=== PATIENT | female | born 1950 | race Caucasian/White ===

== ENCOUNTER 2018-06-11 17:36 | Emergency (ER) | payer OTHER, MEDICARE, SELFPAY ==
[2018-06-11 17:42] VITALS: BP 175/79; PULSE 89; RESP 18; TEMP 37.1; O2SAT 98
--- NOTE | 2018-06-11 17:59 | W.ED.GENAD ---
Discharge Plan Disposition Patient Disposition: HOME Condition: Improving Discharge Details Chief Complaint: Orthopedic Clinical Impression: Closed fracture of distal end of radius Primary Care Provider: Shelbie oLza ED Provider: Tima Sierra Home Meds and New Rx's Prescriptions: Continued PROVENTIL HFA 18 GM HFA.AER.AD 2 puff Inhalation Q4H PRN Qty: 1 RF: 12 cetirizine [Zyrtec] 10 mg tablet 10 mg PO DAILY PRNRF: 0 Discharge Instructions Instructions: Wrist Fracture in Adults (ED) Additional Instructions: Please call the orthopedic office at [phone] tomorrow afternoon for a follow-up time/appointment. Elevate above the level of heart to reduce pain and swelling. May use ice through the splint to reduce discomfort. May use Tylenol 650-1000 mg every 4-6 hours; not exceed more than 4000 mg in 1 day. May also use ibuprofen 600-800 mg every 8 hours, with food for pain. Return if you have increasing pain, numbness or tingling of the fingertips, or any other acute concern. Medical Decision Making 67-year-old female who slipped and fell and after [employer] driveway landing on her right side. She did not strike her head, no loss of consciousness. She denies head/neck/abdomen discomfort. There is some mild tenderness overlying the right lateral ribs on exam as well as distal radius tenderness right. No motor/vascular/sensory dysfunction. Pt referred for x-ray to rule out underlying bony injury. Patient declined rib x-rays. Her radiographs of the right wrist show a distal radius fracture with mild dorsal angulation and intra-articular extension. Patient placed in sugar tong splint and will have her follow-up in orthopedics. Discussed with her home management as well as return precautions. HPI General Mode of arrival: ambulatory. Date/Time Provider Initiated Documentation: 06/11/18 17:53. Limitations to Documentation: no limitations. Information obtained by: patient. History of Present Illness 67 year old F presents to the emergency department with the chief complaint of Slip and fall on ice to right side with right rib and right wrist pain, described as moderate, Quality is described as aching and dull, and is localized to the chest, right and upper extremity. Patient reports no radiation. Patient started experiencing this minute(s) and it has been constant. Rest improves symptom(s), Movement worsens symptoms . Patient notes no other symptoms.; denies headaches and syncope. Patient did receive the following treatments prior to arrival, cold therapy Related Data Home Medications Medication Instructions Recorded Confirmed cetirizine 10 mg tablet 10 mg PO DAILY PRN tab-cap 02/06/18 06/11/18 Allergies Allergy/AdvReac Type Severity Reaction Status Date / Time PETS/HORSES/HAY/DUST/DANDER/POLLEN Allergy Unknown Uncoded 06/11/18 17:49 General Stated Complaint: Orthopedic PRIYANKA: 4 Review of Systems Review of Systems 6 systems reviewed and otherwise negative [facility] Medical History Allergic rhinitis (Acute) Asthma (Chronic) Surgical History Ligation of fallopian tube (Inactive ~1981) Family History Mother Hyperlipidemia Stroke Father Heart disease Lung disease Sister No problems noted. Brother Brain tumor Brother No problems noted. Daughter No problems noted. Son No problems noted. Son No problems noted. Maternal Grandfather No problems noted. Maternal Grandmother Parkinson disease Paternal Grandfather Stroke Paternal Grandmother No problems noted. Social History Smoking/Tobacco Use Status: Never Alcohol Intake: never Drug use: Never Substance use type: does not use Do you feel safe at home: Yes Do you feel safe in your relationship?: Yes Exam Narrative Exam Narrative: GEN: awake, alert, oriented 3. Pleasant, well groomed, interactive. HEAD: Normocephalic, atraumatic ENT: Mucous membranes moist, oropharynx unremarkable, External ear exam unremarkable EYES: PERRL, EOMI NECK: Full ROM, no JOAN, no menigismus. No tenderness on palpation of the back CHEST/RESP: Right lateral inferior chest wall tenderness to palpation, no crepitus, clear to auscultation bilateral, no wheeze/rhonchi/rales CARDIOVASCULAR: RRR, no murmur, rub eleni. 2+ Rad pulse bilateral ABDOMEN: Soft, nontender, no mass. +Bowel sounds EXT: Full ROM, right distal radius tenderness to palpation with mild overlying soft tissue swelling. Motor and sensory testing is within normal limits Neuro: Grossly normal neurologic exam, conversant, interactive. Psych: Speech fluent, thoughts congruent, affect normal Course Vital Signs Temperature 37.1 C 06/11/18 17:42 Pulse 89 06/11/18 17:42 Respiratory Rate 18 06/11/18 17:42 Blood Pressure 175/79 H 06/11/18 17:42 Pulse Oximetry 98 06/11/18 17:42 Temperature 37.1 C 06/11/18 17:42 Temperature Source Skin 06/11/18 17:42 Pulse 89 06/11/18 17:42 Respiratory Rate 18 06/11/18 17:42 Respiratory Effort Non-Labored 06/11/18 17:49 Blood Pressure 175/79 H 06/11/18 17:42 Blood Pressure Position Sitting 06/11/18 17:42 Pulse Oximetry 98 06/11/18 17:42 Oxygen Delivery Method Room Air 06/11/18 17:42 Oxygen Flow Rate 0 06/11/18 17:42 Pain Level 8 06/11/18 17:42 Comment 06/11/18 17:42 Procedures Orthopedic Splinting/Casting Injury #1: Side: right Upper Extremity Injury Location: wrist Upper Extremity Immobilizer: sugartong splint
--- NOTE | 2018-06-11 18:29 | DI.RAD_ITS ---
SYMPTOMS/DIAGNOSIS: PAIN S/P FALL RIGHT WRIST: Three views. There is a comminuted fracture of the distal right radius involving the medial articular surface. There is mild dorsal angulation of the fracture noted. There is soft tissue swelling present. No other fracture or dislocation is seen. IMPRESSION: Mild dorsally angulated intraarticular fracture of the distal right radius.
--- NOTE | 2018-06-11 18:57 | DI.VRAD_ITS ---
EXAM: XR Right Wrist Complete, 3 or more Views EXAM DATE/TIME: 06/11/2018 6:23 PM CLINICAL HISTORY: 67 years old, female; Pain and injury or trauma; Fall; Initial encounter; Blunt trauma (contusions or hematomas; Wrist; Right; Injury details: RT wrist pain after fall TECHNIQUE: XR Right wrist 3 or more views. COMPARISON: No relevant prior studies available. FINDINGS: Bones/joints: Mild first carpometacarpal degenerative changes. Acute fracture of the distal radius with mild dorsal angulation of the comminuted fracture fragment. Interarticular involvement likely present medially. No dislocation. Soft tissues: Generalized soft tissue swelling. IMPRESSION: Acute fracture of the distal radius with mild dorsal angulation of the comminuted fracture fragment. Interarticular involvement likely present medially. Dictated and Authenticated by: Inessa Noble MD. Ordering:JAY Alfred MD
[2018-06-11] MEDS: Acetaminophen 325 MG TAB (19:00)
[2018-06-11] MEDS: Ibuprofen 800 MG TAB (19:00)
[2018-06-11 19:01] VITALS: BP 161/83; PULSE 87; RESP 18; TEMP 37; O2SAT 95
== END 2018-06-11 19:05 | disposition home or self-care (01) ==
PROVIDERS: Emergency Provider Emergency Medicine; PCP Nurse Practitioner Family
DX: S52.591A Other fractures of lower end of right radius, initial encounter for closed fracture (principal); W00.0XXA Fall on same level due to ice and snow, initial encounter
CPT/HCPCS: 25600; 73110; L3650

== ENCOUNTER 2018-06-12 14:04 | Outpatient (CLI) | payer OTHER, MEDICARE, SELFPAY ==
--- NOTE | 2018-06-12 14:00 | DI.RAD_ITS ---
SYMPTOM/DIAGNOSIS: F/U S/P CLOSED REDUCTION RIGHT WRIST: Three views. Comparison 06/11/18 There is again seen a comminuted intra-articular fracture of the distal right radius. Alignment appears near anatomic The patient's wrist is in a cast which does obscure the underlying bony detail.
== END 2018-06-12 14:24 ==
PROVIDERS: PCP Nurse Practitioner Family; Visit Provider Student in an Organized Health Care Education/Training Program
DX: S52.572D Other intraarticular fracture of lower end of left radius, subsequent encounter for closed fracture with routine healing (principal)
CPT/HCPCS: 73110

== ENCOUNTER 2018-06-19 15:57 | Outpatient (CLI) | payer OTHER, MEDICARE, SELFPAY ==
--- NOTE | 2018-06-19 10:50 | DI.RAD_ITS ---
SYMPTOMS/DIAGNOSIS: RT WRIST WRIST RIGHT WRIST: Comparison is made with [id number]. Two views were performed with the wrist in a cast which somewhat obscures the underlying bony detail. There has been no gross interval change in fracture alignment.
== END 2018-06-19 16:17 ==
PROVIDERS: PCP Nurse Practitioner Family; Visit Provider Physician Assistant
DX: S52.572D Other intraarticular fracture of lower end of left radius, subsequent encounter for closed fracture with routine healing (principal)
CPT/HCPCS: 73100

== ENCOUNTER 2018-06-20 09:43 | Day surgery (SDC) | payer OTHER, MEDICARE, SELFPAY ==
[2018-06-20 09:57] VITALS: BP 154/71; PULSE 79; RESP 16; TEMP 36.2; O2SAT 99
[2018-06-20] MEDS: Lactated Ringers 1,000 ML 80 ML IV (10:34)
--- NOTE | 2018-06-20 11:13 | DI.RAD_ITS ---
SYMPTOMS/DIAGNOSIS: CLOSED FRACTURE OF DISTAL RADIUS RIGHT WRIST IN OR: Fluoroscopy Time: 1.05 sec C-arm fluoroscopy was utilized by Dr. Whitlock. There is a plate and screw fixation of the distal radius noted on the hard copies. Alignment appears nearly anatomic.
--- NOTE | 2018-06-20 13:44 | W.PM.DSUDISC ---
Discharge Plan Disposition Patient Disposition: HOME Condition: Good Discharge Details Reason For Visit: FX (R) DISTAL RADIUS Attending Provider: Suhail Whitlock Primary Care Provider: Shelbie Loza Home Meds and New Rx's Prescriptions: New hydrocodone-acetaminophen 5-325 mg tablet 1 tab PO Q4H PRN (Reason: pain) Qty: 10 RF: 0 acetaminophen 500 mg tablet 500 mg PO Q6H PRN PRN (Reason: pain) Qty: 90 RF: 3 ibuprofen 600 mg tablet 600 mg PO TID PRNQty: 90 RF: 3 Continued PROVENTIL HFA 18 GM HFA.AER.AD 2 puff Inhalation Q4H PRN Qty: 1 RF: 12 cetirizine [Zyrtec] 10 mg tablet 10 mg PO DAILY PRNRF: 0 Discontinued ibuprofen 200 mg Capsule 200 mg PO QID PRNRF: 0 No Action acetaminophen [Tylenol Extra Strength] 500 mg Tablet 1,000 mg PO Q6H PRNRF: 0 Discharge Instructions Additional Instructions: Activity: You should keep the hand/wrist elevated as much as possible for the first few days. You may use the other fingers as tolerated but avoid trying to do too much too soon. You may perform light activities with the splint in place. Dressing/Cast: Your splint should stay in place at all times. Do NOT get it wet. You may loosen the LEIDA wrap if you feel it is too tight and then rewrap more loosely. Medications: - You should take Tylenol and Ibuprofen for baseline pain control. - You have Hydrocodone for breakthrough pain if needed - You may apply ice over the wrist, just double bag so it doesn't get wet. Follow-up: 10-14 days Referrals: Suhail Whitlock MD [ [facility] STAFF PHYSICIAN] - Equipment/Supplies: Splint and Sling Activity:: Elevate Remove Dressings/Wound Care:: Do Not Remove Shower/Bathe:: Cover Diet:: As Tolerated Discharge Orders Discharge Orders: Discharge Order (Routine); Ordered 06/20/18 Ordered By: Suhail Whitlock DS: Diagnosis Discharge Diagnosis (1) Fracture of radius, distal, right, closed: Status: Acute
[2018-06-20 13:50] VITALS: BP 130/55; PULSE 82; RESP 20; TEMP 36.6; O2SAT 94
[2018-06-20 13:55] VITALS: BP 133/62; PULSE 80; RESP 16; TEMP 36.6; O2SAT 94
[2018-06-20 14:00] VITALS: BP 126/77; PULSE 78; RESP 17; TEMP 36.6; O2SAT 94
[2018-06-20 14:48] VITALS: BP 135/68; PULSE 77; RESP 16; TEMP 36.3; O2SAT 94
--- NOTE | 2018-06-21 16:04 | W.PM.OP ---
Date of service: 06/20/18 Time of Service: 15:04 Operative Note DATE OF PROCEDURE: 06/20/18 PRE-OP DIAGNOSIS: Right distal radius fracture POST-OP DIAGNOSIS: same PROCEDURE: Open reduction and internal fixation of right distal radius fracture SURGEON: Suhail Whitlock SENIOR MILITARY ANALYST: Belle Quintana ANESTHESIA: GETA and regional ESTIMATED BLOOD LOSS: 50 PATHOLOGY: none sent TOURNIQUET TIME: 46 COMPLICATIONS: None Patient was transported to: PACU Patient's condition: stable Indications: Cecelia is a 67-year-old who suffered a right distal radius fracture. She was treated initially with closed reduction and casting. Unfortunately, after closed reduction and casting she had further displacement and dorsal angulation of greater than 30 degrees. Given this finding in her hand dominance, I recommended operative fixation. I reviewed the risk of the procedure to include bleeding, infection, pain, stiffness, damage to nerves vessels, hardware prominence, damage to tendons, malunion, nonunion, need for repeat procedures. Despite these risks, she elected to proceed. Findings: There was a dorsally displaced distal radius fracture. Early fracture callus was debrided and the fracture was able to be reduced. It was secured with a Synthes variable angle distal radius locking plate Procedure Description: Cecelia was greeted in the preoperative holding area. Her identity was confirmed the correct site was identified and marked. The consent was reviewed the patient and signed. History physical was updated. She was taken to the PACU where a nerve block was administered by anesthesia. She tolerated the regional anesthesia well. He was then brought back into the operating room. She was transferred onto the operating room table. All bony prominences well-padded. Her right arm was placed onto a hand table. A nonsterile tourniquet was placed high up on the right arm. A general anesthetic was administered. Prophylactic antibiotics in the form of cefazolin were given. A timeout was performed for safe surgery. The right arm was prepped with ChloraPrep and draped in a standard fashion. The planned surgical site was anesthetized with 0.5% bupivacaine with epinephrine. The limb was exsanguinated and the tourniquet was inflated to 275 mmHg where he stayed for 46 minutes. A longitudinal incision was made overlying the flexor carpi radialis tendon up to the wrist flexion crease. This was taken to the skin only. Deeper dissection was carried bluntly down to the visible flexor carpi radialis tendon, making sure to avoid any branches of the median nerve, palmar cutaneous. The sheath of the flexor carpi radialis was opened sharply. The tendon was moved ulnarly and the inferior aspect of the sheath was also incised sharply. A tenotomy scissor was used to extend the incision of the sheath both proximally and distally. The radial artery was retracted radially while this was being done. The flexor houses longus musculature was swept bluntly ulnarly to expose the distal radius and the pronator quadratus. Baby Fraire retractors was placed around the distal radius. The pronator quadratus was elevated with an ulnar based flap. The fracture is not visible. Using a [place], I entered into the fracture and broke up some the early fracture callus. I was able to reach the dorsal aspect of the fracture freeing it up completely where he was very mobile. I then performed a reduction maneuver of traction and volar tilt. An x-ray was used to confirm that the reduction was accessible and acceptable. With the distal radius fully exposed I placed a 3-hole narrow Synthes 3.5 mm variable angle locking plate on the bone. This had good positioning. It was loosely position in the expected location and secured with a ball-tip guidewire. A reduction maneuver was performed reducing the distal radius to the plate and x-ray was used to confirm appropriate plate positioning. With this in appropriate position the plate was secured to the oblong hole with a cortical screw. The distal radius was then reduced onto the plate and it was held in this position with a distal radius soft tissue clamp. This compressed the dorsum of the hand against the plate. X-ray was used again to confirm appropriate positioning with adequate reduction of the fracture fragments. Starting on the ulnar aspect of the distal radius I placed 3 locking screws. These were ensured not to be penetrating the dorsal cortex to avoid tendon injury. Once these were placed, x-ray was utilized to confirm appropriate positioning. I then continue with filling of the radial more screws. These were again placed without significant difficulty. X-ray was used to confirm appropriate positioning. Tilted x-rays were used to confirm that all screws were not in the joint. A dorsal Horizon he was attempted but was unable to be accurately obtained but appear to be all within the dorsal cortex of the distal radius. The alignment was well preserved and the wrist was moved to show that the fracture was stable. The 2 other remaining cortex screws were placed within the shaft. These had excellent purchase into the bone. The wound was thoroughly irrigated. Final x-rays were obtained. The pronator quadratus was closed with a 0 Vicryl. The tourniquet was deflated after 46 minutes. There is no aggressive bleeding and no injury to the radial artery. The hand is warm and well perfused. The deep tissue was closed with a 3-0 Vicryl. The skin was closed with 4-0 Monocryl in a running some particular fashion. This was reinforced with skin glue and Steri-Strips. She was then placed into a short arm resting splint. The end the case all counts are correct. She stress her back to the PACU in stable condition suffering no notable complications per
== END 2018-06-20 15:25 | disposition home or self-care (01) ==
PROVIDERS: PCP Nurse Practitioner Family; Visit Provider Student in an Organized Health Care Education/Training Program
PROC: (CPT 25607; principal; 2018-06-20 12:45)
DX: S52.501A Unspecified fracture of the lower end of right radius, initial encounter for closed fracture (principal); W00.0XXA Fall on same level due to ice and snow, initial encounter
CPT/HCPCS: 25607; 73110; J1100; J1885; J2250; J2405; L3650

== ENCOUNTER 2018-06-30 08:23 | Outpatient (CLI) | payer OTHER, MEDICARE, SELFPAY ==
--- NOTE | 2018-06-30 08:12 | DI.RAD_ITS ---
SYMPTOM/DIAGNOSIS: F/U FX RIGHT WRIST: Three views were obtained. The previously described fracture of the distal radius with plate and screw fixation is again noted. No gross interval change in alignment in comparison with intraoperative films obtained 06/20.
== END 2018-06-30 08:43 ==
PROVIDERS: PCP Nurse Practitioner Family; Visit Provider Physician Assistant
DX: S52.501D Unspecified fracture of the lower end of right radius, subsequent encounter for closed fracture with routine healing (principal)
CPT/HCPCS: 73110

== ENCOUNTER 2018-07-21 08:21 | Outpatient (CLI) | payer OTHER, MEDICARE, SELFPAY ==
--- NOTE | 2018-07-21 08:16 | DI.RAD_ITS ---
SYMPTOMS/DIAGNOSIS: F/U RT DISTAL RADIUS FX TREATED WITH ORIF RIGHT WRIST: Comparison is made with [id number]. The volar fixation plate remains in place across the distal radius for fracture fixation. There has been continued healing of the fracture. Degenerative changes of the scaphoid multangular joint are again noted.
== END 2018-07-21 08:41 ==
PROVIDERS: PCP Nurse Practitioner Family; Visit Provider Physician Assistant
DX: S52.572D Other intraarticular fracture of lower end of left radius, subsequent encounter for closed fracture with routine healing (principal)
CPT/HCPCS: 73110

== ENCOUNTER 2018-08-18 08:12 | Outpatient (CLI) | payer OTHER, MEDICARE, SELFPAY ==
--- NOTE | 2018-08-18 08:08 | DI.RAD_ITS ---
SYMPTOMS/DIAGNOSIS: ORIF FOLLOW UP RIGHT WRIST: Comparison is made with [id number]. A fixation plate is again noted along the volar aspect of the distal radius for fracture fixation. There has been no change in hardware or fracture alignment. There has been some increased healing when compared with the previous exam. There is now an apparent erosion at the ulnar styloid. IMPRESSION: New ulnar styloid erosion.
== END 2018-08-18 08:32 ==
PROVIDERS: PCP Nurse Practitioner Family; Visit Provider Physician Assistant Surgical
DX: M25.831 Other specified joint disorders, right wrist (principal); S52.572D Other intraarticular fracture of lower end of left radius, subsequent encounter for closed fracture with routine healing
CPT/HCPCS: 73110

== ENCOUNTER 2018-10-27 07:18 | Emergency (ER) | payer OTHER, MEDICARE, SELFPAY ==
[2018-10-27 07:23] VITALS: BP 146/88; PULSE 98; RESP 18; TEMP 36.6; O2SAT 96
--- NOTE | 2018-10-27 07:33 | W.ED.GENAD ---
Discharge Plan Disposition Patient Disposition: HOME Condition: Good Discharge Details Chief Complaint: Orthopedic Clinical Impression: Bicipital tendonitis of left shoulder, Bursitis Primary Care Provider: Shelbie Loza ED Provider: Tammie Clarke Home Meds and New Rx's Prescriptions: New lidocaine [Lidoderm] 1 PATCH patch 1 patch Topical Q24H Qty: 4 RF: 0 No Action PROVENTIL HFA 18 GM HFA.AER.AD 2 puff Inhalation Q4H PRN Qty: 1 RF: 12 cetirizine [Zyrtec] 10 mg tablet 10 mg PO DAILY PRNRF: 0 acetaminophen [Tylenol Extra Strength] 500 mg Tablet 1,000 mg PO Q6H PRNRF: 0 acetaminophen 500 mg tablet 500 mg PO Q6H PRN PRN (Reason: pain) Qty: 90 RF: 3 ibuprofen 600 mg tablet 600 mg PO TID PRNQty: 90 RF: 3 Discharge Instructions Instructions: Tendinitis (ED) Additional Instructions: At this time there is a high clinical suspicion for tendinitis as a cause of your pain. Please take 600 mg of ibuprofen every 6 hours and maximum dose of 1000 mg of Tylenol every 6 hours as needed for pain. Please use the Lidoderm patch as directed. Please follow-up closely with the orthopedic surgeon Dr. Whitlock whom you have seen before. Please make sure to move your arm in all directions if you use the sling to prevent frozen shoulder syndrome. If you notice any worsening of your symptoms, or any new symptoms such as vomiting, diarrhea, fever, chills, shortness of breath, chest pain, numbness, weakness, or fainting , please return immediately to the emergency department for reevaluation. Please follow up with your primary care provider as soon as possible for reassessment and reevaluation. As always, it was a pleasure participating in your medical care today. Referrals: Suhail Whitlock MD [ [facility] STAFF PHYSICIAN] - Discharge Data Discharge Date/Time-TO BE ENTERED AT DEPARTURE: 10/27/18 09:05 Medical Decision Making <Cameron Mo DO - Last Filed: 10/27/18 08:04> This is a 68-year-old female with no significant past medical history who presents today for evaluation of left shoulder pain. 2 to 3 days ago she had a potentially inciting event when she was holding her lifting a heavy box of tuna, however she does not recall this causing significant pain at that time. Over the next 2 to 3 days she has had notable worsening of pain restricting her movement. Pain is reproducible on the proximal biceps tendon insertion point, as well as the lateral aspect of the deltoid and the humeral insertion for supraspinatus. Pain is notably worse with external rotation, abduction and flexion. She demonstrates normal neurovascular exam. No significant historical traumatic component. No history of gout. Differential includes tendinitis, bursitis, or mild rotator cuff injury. We will get an x-ray to rule out fracture. Will apply Lidoderm patch, recommend NSAIDs, and give sling. Currently pending x-ray results at this time. Case will be signed out to my colleague Dr. Tammie Clarke for final disposition. <Tammie Clarke DO - Last Filed: 10/28/18 08:26> Please see Dr. Mo's note for initial presentation, exam and plan. X-ray reviewed and negative. Patient states she feels better with Lidoderm patch. Her history and presentation appears consistent likely with a shoulder strain/sprain, tendinitis, arthritis, bursitis, or rotator cuff injury. Dr. Mo is given prescription for Motrin and Lidoderm patch for home. She is advised to follow-up with Dr. Whitlock for reevaluation and for referral to physical therapy if no improvement and for MRI if indicated. She is advised to return here with any concerns. Medical Records Medical records reviewed: Yes I reviewed the patient's medical records. Imaging Data Radiologic Study: Radiologist's impression: LEFT SHOULDER: No acute fracture or dislocation is seen. The joint spaces are well maintained. There is a tiny calcification adjacent to the greater tuberosity likely reflecting calcific tendinitis. IMPRESSION: No acute fracture or dislocation. HPI <Cameron Mo DO - Last Filed: 10/27/18 08:04> General Date/Time Provider Initiated Documentation: 10/27/18 07:21. HPI Narrative: This is a pleasant 68-year-old female who presents today for evaluation of left shoulder pain. She is right-hand dominant. She states that 2 to 3 days ago she was handed a heavy package of tunafish utilizing her left arm, she does not necessarily feel that this is an inciting event, but this is the only time she remembers any strain to the arm itself. Since around that time she has had notable gradual worsening of pain in the left shoulder, that is worsened with movement as well as palpation. Pain is present over the anterior component of the shoulder. Particularly worse with rotation of the shoulder and flexion. She denies any fall or other trauma. She denies any associated numbness or tingling. She denies any radiation to her chest or back. She denies any history of cardiac disease. She denies any history of gout. No other complaints at this time. She did take some ibuprofen this did slightly improve the symptoms, but did not resolve them. She denies any other previous injuries to the shoulder. She did fracture her right wrist past year, but denies any other significant orthopedic problems. She denies any IV or illicit drug use. She denies any pertinent family history. Related Data Home Medications Medication Instructions Recorded Confirmed cetirizine 10 mg tablet 10 mg PO DAILY PRN tab-cap 02/06/18 10/27/18 acetaminophen [Tylenol Extra 1,000 mg PO Q6H PRN 06/19/18 10/27/18 Strength] acetaminophen 500 mg PO Q6H PRN PRN #90 tab 06/20/18 10/27/18 ibuprofen 600 mg PO TID PRN #90 tab 06/20/18 10/27/18 lidocaine [Lidoderm] 1 patch TOPICAL Q24H #4 patch 10/27/18 Previous Rx's Medication Instructions Recorded acetaminophen 500 mg PO Q6H PRN PRN #90 tab 06/20/18 ibuprofen 600 mg PO TID PRN #90 tab 06/20/18 lidocaine [Lidoderm] 1 patch TOPICAL Q24H #4 patch 10/27/18 Allergies Allergy/AdvReac Type Severity Reaction Status Date / Time PETS/HORSES/HAY/DUST/DANDER/POLLEN Allergy Unknown Uncoded 10/27/18 07:27 General Stated Complaint: Orthopedic PRIYANKA: 4 Review of Systems <Cameron Mo DO - Last Filed: 10/27/18 08:04> Review of Systems All systems reviewed & are unremarkable except as noted in HPI and below PFSH <Cameron Mo DO - Last Filed: 10/27/18 08:04> Medical History Allergic rhinitis (Acute) Asthma (Chronic) Cataract (Chronic) Surgical History (Updated 06/30/18 @ 19:24 by TONI Mojica) Ligation of fallopian tube (Inactive ~1981) S/P ORIF (open reduction internal fixation) fracture (Inactive 06/20/18) Social History Smoking/Tobacco Use Status: Never Alcohol Intake: never Drug use: Never Substance use type: does not use Do you feel safe at home: Yes Do you feel safe in your relationship?: Yes Exam <Cameron Mo DO - Last Filed: 10/27/18 08:04> Narrative Exam Narrative: 1.Const: Well-nourished, Well-developed, appearing stated age 2.Eyes: PERRL, no conjunctival injection, and symmetrical lids. 3.ENT: Atraumatic external nose and ears. Moist MM. Neck: Symmetric, trachea midline, No thyromegaly. 4.CVS: +S1/S2, No murmurs or gallops. Peripheral pulses 2+ and equal in all extremities. Brisk capillary refill in all extremities. 5.RESP: Unlabored respiratory effort. Clear to auscultation bilaterally. No wheezes rales or rhonchi 6.GI: Soft, Nontender/Nondistended, No hepatosplenomegaly. No guarding or rebound. 7.MSK: Left upper extremity: Patient demonstrates notable reproducible tenderness over the biceps tendon at the proximal humeral insertion point. She also has reproducible tenderness over the lateral aspect of the deltoid. There is also tenderness over the insertion of supraspinatus on the humerus. Notable worsening of pain with abduction, as well as external rotation. Notable pain is also present with flexion of the shoulder, but not extension. No significant pain with internal rotation. Evaluation of the elbow wrist and hand are otherwise unremarkable with normal movement sensation and normal neurovascular exam. 8.Skin: Warm, Dry. No rashes or lesions. 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 Sensation grossly intact, no focal neurologic deficits. 10.Psych: (AAO) x3. Appropriate mood and affect Course <Cameron Mo DO - Last Filed: 10/27/18 08:04> Vital Signs Temperature 36.6 C 10/27/18 07:23 Pulse 98 H 10/27/18 07:23 Respiratory Rate 18 10/27/18 07:23 Blood Pressure 146/88 H 10/27/18 07:23 Pulse Oximetry 96 10/27/18 07:23 Temperature 36.6 C 10/27/18 07:23 Temperature Source Temporal Artery Scan 10/27/18 07:23 Pulse 98 H 10/27/18 07:23 Respiratory Rate 18 10/27/18 07:23 Respiratory Effort Non-Labored 10/27/18 07:31 Blood Pressure 146/88 H 10/27/18 07:23 Blood Pressure Position Sitting 10/27/18 07:23 Pulse Oximetry 96 10/27/18 07:23 Oxygen Delivery Method Room Air 10/27/18 07:23 Oxygen Flow Rate 0 10/27/18 07:23 Pain Level 8 10/27/18 07:32 Sign Out <Cameron Mo DO - Last Filed: 10/27/18 08:04> Sign Out Data: Sign Out Comment: Pending x-ray reviewed. No evidence of fracture on my exam. Dispel with Lidoderm patch, NSAIDs, and orthopedic follow-up and sling. Last updated by Cameron Mo DO at 10/27/18 07:59
[2018-10-27] MEDS: Lidocaine 5% Patch 1 PATCH TP (07:36)
[2018-10-27] MEDS: Acetaminophen 500 MG TAB 1000 MG PO (07:36)
--- NOTE | 2018-10-27 07:52 | DI.RAD_ITS ---
SYMPTOM/DIAGNOSIS: ACUTE LEFT SHOULDER PAIN OVER ANTERIOR COMPONENT LEFT SHOULDER: No acute fracture or dislocation is seen. The joint spaces are well maintained. There is a tiny calcification adjacent to the greater tuberosity likely reflecting calcific tendinitis. IMPRESSION: No acute fracture or dislocation.
== END 2018-10-27 09:05 | disposition home or self-care (01) ==
PROVIDERS: Emergency Provider Physician Assistant; PCP Nurse Practitioner Family
DX: M75.22 Bicipital tendinitis, left shoulder (principal); M75.52 Bursitis of left shoulder; X50.0XXA Overexertion from strenuous movement or load, initial encounter
CPT/HCPCS: 99283; 73030; L3650

== ENCOUNTER 2019-01-02 22:18 | Outpatient (REF) | payer OTHER, MEDICARE, SELFPAY | END 2019-01-02 22:38 | LOC: LBN 22:18 | PROVIDERS: PCP Nurse Practitioner Family; Visit Provider Nurse Practitioner | DX: N76.0 Acute vaginitis (principal) | CPT/HCPCS: 87480; 87510; 87660 ==

== ENCOUNTER 2019-03-01 08:13 | Day surgery (SDC) | payer OTHER, MEDICARE, SELFPAY ==
[2019-03-01] VITALS (7 sets, daily range): BP systolic 124–167; BP diastolic 61–86; PULSE 85–95; RESP 10–16; TEMP 36.3–36.7; O2SAT 92–99
[2019-03-01] MEDS: Lactated Ringers 1,000 ML 80 ML IV (08:49)
--- NOTE | 2019-03-01 09:00 | W.COLOREPORT ---
Date of service: 03/01/19 Time of Service: 09:00 Colonoscopy Report Procedure Description: After informed consent was obtained the patient was taken to the procedure room and placed in a left decubitous position. Monitors were applied and a time out was done. The patients name, date of , procedure, allergies to medications and metal in their body was reviewed. The patient was then sedated. Once sedated and comfortable a rectal exam was done. External exam was normal. Internal exam revealed a normal sphincter tone and no palpable masses. The scope was then introduced and retrofelexed. No internal hemorrhoids were identified. The scope was then advanced to the cecum w/out difficulty. The TI and appendiceal orifice were identified. The prep was suboptimal.. The scope was then slowly retracted over 10 minutes back into the rectum. Polyps were removed no. Does have minor diverticular disease confined to the sigmoid touchdown colon. There is no sign of active bleeding or infection. There are no polyps noted today. The scope was removed and the patient was woken up and taken back to Same day surgery in stable condition. The patient tolerated the procedure well and there were no immediate complications. Follow up: The patient does not need any further screening colonoscopies , unless they develop changes in bowel habits or other new gastrointestinal complaints.
--- NOTE | 2019-03-01 09:02 | W.PM.DSUDISC ---
Discharge Plan Disposition Patient Disposition: HOME Condition: Good Discharge Details Reason For Visit: colon scope Attending Provider: Nai Sauceda Primary Care Provider: Rupinder Olea Home Meds and New Rx's Prescriptions: Discontinued bisacodyl [Dulcolax (bisacodyl)] 5 mg tablet,delayed release (DR/EC) 5 mg PO ONCE Qty: 4 RF: 0 No Action polyethylene glycol 3350 17 gram/dose powder 238 g PO ONCE Qty: 238 RF: 0 PROVENTIL HFA 18 GM HFA.AER.AD 2 puff Inhalation Q4H PRN Qty: 1 RF: 12 cetirizine [Zyrtec] 10 mg tablet 10 mg PO DAILY PRNRF: 0 acetaminophen [Tylenol Extra Strength] 500 mg Tablet 1,000 mg PO Q6H PRNRF: 0 Discharge Instructions Instructions: Diverticulosis (GEN), High Fiber Diet (DC) Additional Instructions: Findings: diverticula- minor Follow up: F/u PCP prn does not require any further Ce's Please call if you develop: fevers >101.5 Nausea or Vomiting Abdominal pain that is not transient DAY SURGERY UNIT POST COLONOSCOPY INSTRUCTIONS 1. Because there will be medication in your system for the next 24 hours, you may feel a little sleepy. Your coordination will be affected. Therefore: a. Do not drive or operate dangerous equipment for 24 hours. b. Do not drink alcohol beverages for 24 hours (not even beer). c. Plan to go home and rest for the day. 2. Generally there are no restrictions on your activity after a day or so has gone by, but you may feel a bit fatigued for a few days. 3 After you arrive home you may have a light meal and return to a normal diet as you can tolerate it without feeling sick to your stomach. 4. After surgery, you may feel pain or discomfort. This should be only transient, but if it persists please contact your doctor. 5. If there are any questions regarding the findings of your procedure, please feel free to contact your doctor. 6. If you are unable to contact your doctor with a problem, contact the hospital at [phone]. 7. Continue all your regular medications unless directed otherwise. I understand the above instructions and have no questions. Signature of Patient or Responsible Adult Escort Date/Time Name of Responsible Adult Escort Signature of Nurse Date/Time Activity:: No heavy lifting or strenuous activity x24 hours Diet:: Small light meals x24 hours Discharge Orders Discharge Orders: Discharge Order (Routine); Ordered 03/01/19 Ordered By: Nai Sauceda DS: Diagnosis Discharge Diagnosis (1) Diverticula of colon: Status: Acute
[2019-03-01] MEDS: Albuterol 2.5 MG/3 ML INH SOLN VIAL UPD (10:21)
== END 2019-03-01 12:26 | disposition home or self-care (01) ==
PROVIDERS: PCP Nurse Practitioner; Visit Provider Surgery
PROC: 0DJD8ZZ Inspection of Lower Intestinal Tract, Via Natural or Artificial Opening Endoscopic (ICD-10-PCS; CPT 45378; principal; 2019-03-01 09:00)
DX: Z12.11 Encounter for screening for malignant neoplasm of colon (principal); K57.30 Diverticulosis of large intestine without perforation or abscess without bleeding; J44.9 Chronic obstructive pulmonary disease, unspecified
CPT/HCPCS: 45378; J7613

== ENCOUNTER → 2019-10-19 08:17 | Outpatient (BNVA) | payer MEDICARE, OTHER, SELFPAY | PROVIDERS: PCP Nurse Practitioner; Referring Provider Nurse Practitioner; Visit Provider Surgery | DX: D17.1 Benign lipomatous neoplasm of skin and subcutaneous tissue of trunk (principal); Z01.818 Encounter for other preprocedural examination | CPT/HCPCS: 99213 ==

== ENCOUNTER 2019-10-27 07:19 | Outpatient (CLI) | payer MEDICARE, OTHER, SELFPAY ==
[2019-10-28 17:27] LABS: COVID-19 RT-PCR Result NEGATIVE (Negative)
== END 2019-10-27 07:39 ==
PROVIDERS: PCP Nurse Practitioner; Visit Provider Surgery
DX: Z01.818 Encounter for other preprocedural examination (principal)
CPT/HCPCS: U0003

== ENCOUNTER 2019-10-31 07:25 | Day surgery (SDC) | payer MEDICARE, OTHER, SELFPAY ==
--- NOTE | 2019-10-31 06:34 | W.PM.OP ---
Date of service: 10/31/19 Time of Service: 09:42 Operative Note Operative Note DATE OF PROCEDURE: 10/31/19 PRE-OP DIAGNOSIS: Lipoma POST-OP DIAGNOSIS: same PROCEDURE: Excision of left upper back lipoma SURGEON: Alexandra Garcia AIRVEYOR OPERATOR: Belle Quintana ANESTHESIA: MAC (ASA 2/ Dennise Irvin CRNA) and local (Exparel 20 cc mixed with 20 cc of 0.25% Bupivocaine) ESTIMATED BLOOD LOSS: 10 PATHOLOGY: other (Lipoma, marked medial edge) COMPLICATIONS: None Patient was transported to: PACU Patient's condition: stable Implants: none Indications: 69 year old healthy female with a large lipoma of her left upper back. Excision in the OR under deep MAC/ General Risks, benefits, complications were reviewed with the patient. Complications include but are not limited to bleeding, pain, seroma, hematoma, wound dehiscence, recurrence, muscle and nerve injury, adverse reaction to the anesthesia. Questions were entertained and answered to her satisfaction and she wished to proceed. No guarantees were given or implied. Findings: Large 12 x 4 cm lipoma Procedure Description: After informed consent was obtained and the lipoma was marked in SDS the patient was taken back to the OR and placed in a right lateral position on the OR bed. Monitors were applied and the patient was sedated. The left upper shoulder and back were prepped and draped in a sterile surgical fashion. A timeout was done and the patient's name, date of , allergies to medications, antibiotic given, procedure to be done were reviewed. Fire risk was assessed. At this point the local mixture was injected into the dermis along the previously marked area. A 4 cm incision was made with a 10 blade through the dermis and down to the subcutaneous tissue. Bleeding from the dermis and subcutaneous tissue was cauterized. The capsule around the lipoma was opened sharply with iris scissors. Using blunt dissection the lipoma was dissected away from the capsule medially, superiorly and inferiorly. The edge of the like lipoma at the medial edge was pulled out of the incision. Using blunt dissection the lipoma was dissected away from the fascia over the scapula. Once removed it was marked with a suture medially. The Lipoma measured 12 x 4 cm. The lipoma was placed into formalin and will be sent to pathology. Next the cavity was inspected some small amount of bleeding was identified and this was stopped using cautery. Next the rest of the lidocaine/Exparel mixture was injected along the fascia and the dermis. This point the subcutaneous tissue was reapproximated with 3-0 Vicryl interrupted sutures. The dermis was reapproximated using a running stitch with 4-0 Vicryl. The skin was cleaned and dried. Mastisol and Steri-Strips were applied. A pressure dressing was applied over the Steri-Strips. At this point instrument, needle and sponge counts were correct. The patient was woken up, placed back on the [facility] and taken back to same-day surgery in stable condition. The patient tolerated procedure and there were no immediate complications.
--- NOTE | 2019-10-31 06:36 | W.PM.DSUDISC ---
Discharge Plan Disposition Patient Disposition: HOME Condition: Good Discharge Details Reason For Visit: lipoma Attending Provider: Alexandra Garcia Primary Care Provider: Rupinder Olea Home Meds and New Rx's Prescriptions: New ibuprofen 600 mg tablet 600 mg PO Q6H PRN (Reason: pain) Qty: 60 RF: 0 Continued PROVENTIL HFA 18 GM HFA.AER.AD 2 puff Inhalation Q4H PRN Qty: 1 RF: 12 cetirizine [Zyrtec] 10 mg tablet 10 mg PO DAILY PRNRF: 0 albuterol sulfate [Ventolin HFA] 90 mcg/actuation HFA aerosol inhaler 2 puff IH 6XD PRN (Reason: shortness of breath or wheezing) Qty: 18 RF: 6 acetaminophen [Tylenol Extra Strength] 500 mg Tablet 1,000 mg PO Q6H PRNRF: 0 Discharge Instructions Additional Instructions: Activity at Home after surgery: 1. Make sure you walk outside at least 4 times per day 2. You should be able to climb a flight of stairs 3. No driving while in pain or taking pain medications 4. No strenuous activity or heavy lifting for 2 weeks Diet, Nutrition, & wound healin. Avoid alcohol until after you are recovered from your surgery 2. Make sure to eat plenty of lean protein (meat, fish, eggs, cottage cheese, beans) 3. Eat a variety of fruits and vegetables. Eat plenty of high fiber foods to avoid constipation. 4. Drink plenty of liquids to stay hydrated and avoid constipation Pain Medications: 1. Tylenol 650 mg every 6 hours as needed and Ibuprofen 600 mg every 6 hours as needed. May alternate between the two medications every 3 hours. 2. If a narcotic has been prescribed take as directed only for breakthrough pain For Constipation: 1. Take Milk of Magnesia or MiraLax as needed for constipation Other: 1. You may shower daily. Do not scrub the incisions 2. Do not soak the incisions for 1 week 3. You may alternate ice and heat as needed for pain and swelling Wound Care: 1. Keep the incisions clean and dry Please call our office if you develop: 1. Fevers >101.5 2. Nausea or Vomiting 3. Worsening pain 4. Redness and thick discharge from the wounds If after hours please call the Hospital at and ask to speak to the on-call surgeon Stand Alone Forms: DSU Post op Instructions Referrals: Alexandra Garcia MD [ [facility] STAFF PHYSICIAN] - 11/13/19 10:00 am Activity:: Activity as Tolerated Remove Dressings/Wound Care:: 24 hours Shower/Bathe:: 24 hours Diet:: As Tolerated Discharge Orders Discharge Orders: Discharge Order (Routine); Ordered 10/31/19 Ordered By: Alexandra Garcia
[2019-10-31 07:30] VITALS: BP 140/76; PULSE 88; RESP 18; TEMP 36.5; O2SAT 96
[2019-10-31] MEDS: Lactated Ringers 1,000 ML 80 ML IV (07:55)
--- NOTE | 2019-10-31 09:25 | SOFT_PTH ---
PATIENT: Cecelia Agosto LOC: [facility] U#:[id number] AGE/SX: 69/F ROOM: RE10/31/[address]: Alexandra Garcia MD : [id number] BED: DIS: 10/31/2019 SPEC #: [id number] RECD: 10/31/19 12:50 STATUS: LACIE REQ #: [id number] KARLY: 10/31/19 09:[address]: Alexandra Garcia DEPT: Surgical Specimen RECD BY: Callie Jackson ENTERED: 10/31/19 12:51 SP TYPE: SOFT OTHR DR: Rupinder Olea, PhD HERB GROWER Tissues: 1 - SOFT TISSUE MISC (INC. LIPOMA) Procedures: GROSS AND MICRO LEVEL 3 Comments: [id number]
[2019-10-31] MEDS: Bupivacaine 0.25% Pres-Free 30 ML VIAL (09:27)
[2019-10-31 10:12] VITALS: BP 143/78; PULSE 82; RESP 18; TEMP 36.5; O2SAT 96
== END 2019-10-31 10:26 | disposition home or self-care (01) ==
LOC: SUR 07:25
PROVIDERS: PCP Nurse Practitioner; Visit Provider Surgery
PROC: (CPT 11404; principal; 2019-10-31 08:45)
DX: D17.1 Benign lipomatous neoplasm of skin and subcutaneous tissue of trunk (principal)
CPT/HCPCS: 11404; 12032; 88304; J0690; J2250

== ENCOUNTER → 2019-11-13 10:02 | Outpatient (BNVA) | payer OTHER, MEDICARE, SELFPAY | PROVIDERS: PCP Nurse Practitioner; Referring Provider Nurse Practitioner; Visit Provider Surgery | DX: Z48.817 Encounter for surgical aftercare following surgery on the skin and subcutaneous tissue (principal); D17.1 Benign lipomatous neoplasm of skin and subcutaneous tissue of trunk ==

== ENCOUNTER 2021-03-30 16:14 | Outpatient (REF) | payer MEDICARE, SELFPAY ==
[2021-03-31 19:59] LABS: COVID-19 RT-PCR UVMMC Result Positive (Negative)
== END 2021-03-30 16:15 | disposition home or self-care (01) ==
LOC: LBN 16:14
PROVIDERS: PCP Nurse Practitioner; Visit Provider Family Medicine
DX: J06.9 Acute upper respiratory infection, unspecified (principal); Z20.822 Contact with and (suspected) exposure to COVID-19
CPT/HCPCS: U0003; U0005

== ENCOUNTER 2021-04-06 02:47 | Outpatient (CLI) | payer MEDICARE, SELFPAY ==
[2021-04-06 08:30] VITALS: BP 155/76; PULSE 85; RESP 16; TEMP 36.6; O2SAT 96
[2021-04-06 09:49] VITALS: BP 155/77; PULSE 81; RESP 18; TEMP 36.9; O2SAT 98
[2021-04-06 10:30] VITALS: BP 153/73; PULSE 74; RESP 16; TEMP 37.1; O2SAT 96
== END 2021-04-06 02:48 | disposition home or self-care (01) ==
PROVIDERS: PCP Nurse Practitioner; Visit Provider Family Medicine
DX: U07.1 COVID-19 (principal); R05.9 Cough, unspecified; R53.81 Other malaise
CPT/HCPCS: 96365; Q0047

== ENCOUNTER 2022-06-18 09:06 | Outpatient (CLI) | payer MEDICARE, SELFPAY ==
--- NOTE | 2022-06-18 14:48 | DI.RAD_ITS ---
Exam(s) XR KNEE LT 3V AP,LAT,YULISSA EXAM: XR KNEE LT 3V AP,LAT,YULISSA CLINICAL HISTORY: 2 months of pain M25.562 PAIN LEFT KNEE. TECHNIQUE: 2D digital imaging was performed of the left knee. Three images were obtained. AP, late ral and PA tunnel views were obtained. COMPARISON: No exams were available for comparison FINDINGS: BONES: No acute fracture is present. No bony destructive lesion is seen. JOINTS: The knee is normally aligned. No joint effusion is seen. There is mild narrowing and periarti cular spurring in the medial femoral tibial joint. There is mild narrowing of the lateral femoral ti bial joint. SOFT TISSUE: Normal. IMPRESSION: Mild degenerative changes of the knee. DATA REPOSITORY: RADIATION DOSE DELIVERED:
== END 2022-06-18 09:26 ==
LOC: DI 09:06
PROVIDERS: PCP Nurse Practitioner Family; Visit Provider Nurse Practitioner Family
DX: M25.562 Pain in left knee (principal); M25.862 Other specified joint disorders, left knee
CPT/HCPCS: 73562

== ENCOUNTER → 2022-07-09 08:50 | Outpatient (BNVA) | payer MEDICARE, SELFPAY | PROVIDERS: PCP Nurse Practitioner Family; Referring Provider Nurse Practitioner Family; Visit Provider Physician Assistant | DX: M17.12 Unilateral primary osteoarthritis, left knee (principal) | CPT/HCPCS: 99213 ==

== ENCOUNTER 2022-07-23 08:02 | Day surgery (SDC) | payer MEDICARE, SELFPAY ==
[2022-07-23 08:16] VITALS: BP 159/72; PULSE 78; RESP 17; TEMP 36.7; O2SAT 97
[2022-07-23] MEDS: Tropicam./Phenyleph. (1/2.5%) 5 ML BTL OS ×3 (08:19→08:29)
--- NOTE | 2022-07-23 08:25 | W.ANESPRE ---
General Info Date of Service Date Performed: 07/23/22 Height: 5 ft 3 in Weight: 67.9 kg Body Mass Index (BMI): 26.5 Surgical Procedure: Operation Date: 07/23/22 10:40 Proposed Procedure Side Surgeon p Cataract Extraction with IOL Implant Left Felipe Howard MD Meds Allergies and Home Medications Allergies Allergy/AdvReac Type Severity Reaction Status Date / Time PETS/HORSES/HAY/DUST/DANDER/POLLEN Allergy Unknown Itching Uncoded 07/23/22 08:23 Home Medication Medication Instructions Recorded ibuprofen 600 mg tablet 600 mg PO Q6H PRN pain #60 tabs 02/14/20 varicella-zoster glycoE [id number] 0.5 ml IM ONCE #1 ea 04/10/21 adj(PF) 50 mcg/0.5 mL IM susp, kit (Shingrix (PF)) bupropion HCl 300 mg 24 hr tablet, 300 mg PO QAM #90 tabs 06/16/22 extended release (Wellbutrin XL) albuterol sulfate 90 mcg/actuation 2 puff inhalation 6XD PRN 06/21/22 aerosol inhaler (Ventolin HFA) shortness of breath or wheezing #18 grams meloxicam 15 mg tablet 15 mg PO DAILY #30 tabs 07/09/22 Current Visit Medications: Current Medications Generic Name Dose Route Start Last Admin Trade Name Freq PRN Reason Stop Dose Admin Acetaminophen 1,000 mg 07/23/22 06:00 Acetaminophen 500 Mg Tab PO Q4H PRN PRN Miscellaneous Medication 0 ml 07/23/22 06:00 Tropicam./Phenyleph. (1/2.5%) 5 Ml Btl OS DIRECTED FRANCIS Miscellaneous Medication 0 ml 07/23/22 06:00 Prednisolone 1%, Moxifloxacin 0.5%, Nepafenac 0.1% 5ml Btl OS DIRECTED FRANCIS Tetracaine HCl 0 ml 07/23/22 06:00 Tetracaine 0.5% 4 Ml Btl OS DIRECTED FRANCIS PFSH Active Problems Active Problems: Problem Status Onset Code Nuclear age-related cataract, left eye H25.12 Left knee DJD M17.12 Excessive cerumen in left ear canal H61.22 Hyperlipidemia E78.5 Depression F32.A Obstructive airway disease J44.9 Seasonal allergies 10/04/13 J30.2 Medical History Medical History Abnormal mammogram (10/04/13) Allergic rhinitis Asthma Cataract R eye COVID-19 03/2021, immunized, given monoclonal antibodies Diverticula of colon Lipoma Surgical History Surgical History Fracture of radius, distal, right, closed Status post ORIF on 06/20/2018 History of colonoscopy (~03/01/19) Ligation of fallopian tube (~1981) S/P excision of lipoma S/P ORIF (open reduction internal fixation) fracture (06/20/18) For right distal radius fracture Tobacco Smoking/Tobacco Use Status: Never Passive smoking exposure: Yes Second hand exposure: Yes Alcohol Alcohol Intake: current Alcohol intake frequency: a few times a month Alcohol type: wine Substance Use Substance use: Never Substance use type: does not use Vital Signs and Lab Results Vital Signs Most Recent Vital Signs in EMR: Most Recent Vital Signs Temp Pulse Resp BP Pulse Ox 36.7 C 78 17 159/72 H 97 07/23/22 08:16 07/23/22 08:16 07/23/22 08:16 07/23/22 08:16 07/23/22 08:16 Lab Results Blood Type / Crossmatch: No Data to Display Complete Blood Count: No Data to Display Complete Metabolic Panel: No Data to Display Liver Function Panel: No Data to Display Coagulation Panel: No Data to Display Cardiac Panel: No Data to Display Arterial Blood Gas: No Data to Display Venous Blood Gas: No Data to Display Pancreas Panel: No Data to Display Thyroid Panel: No Data to Display Infectious Disease: No Data to Display Blood Cultures: No Data to Display Toxicology Panel: No Data to Display Anesthesia Assessment and Plan Anesthesia History Personal History: No History of Anesthesia Complications Family History: No Family History of Anesthesia Complications Exercise Tolerance Exercise Tolerance: Metabolic Equivalents>4 Pertinent Negatives Pertinent Negatives: No Symptoms of GERD Cardiac & Pulmonary Exam Cardiac Exam: Normal S1/S2 Heart Sounds Pulmonary Exam: Clear Bilateral Breath Sounds Implantable Cardiac Device Does patient have a Pacemaker or an ICD?: No Airway Exam Known Difficult Airway: No Mallampati Class: 2 Mouth Opening: Normal (> 3cm) Thyromental Distance: Greater than 3 cm Neck Range of Motion: Full ROM Neck Circumference: Normal Teeth Condition: Normal Dentition ASA Classification ASA Score: ASA 2 Emergency Case?: No NPO Status NPO Status: NPO Clears >2 hours, Solids >8 hours Anesthesia Plan Resuscitation Status: Full Code Anesthesia Technique: MAC Anesthesia Airway Planned: Natural Airway Monitors Used: Standard Monitors Preoperative Comments:: Very nervous. Wants MKO
[2022-07-23 08:52] VITALS: BMI 26.5
[2022-07-23] MEDS: Tetracaine 0.5% 4 ML BTL OS (09:49)
[2022-07-23] MEDS: Duovisc Viscoelastic System EACH 1 EACH (09:50)
[2022-07-23] MEDS: Balanced Salt Soln.-PLUS 500 ML BAG (09:50)
[2022-07-23] MEDS: Phenylephrine/Lidocaine (15/10) MG/ML 1 ML VIAL (09:51)
[2022-07-23] MEDS: Lidocaine 1% Pres-Free 5 ML VIAL (09:51)
[2022-07-23] MEDS: Povidone-Iodine Ophth 30 ML BTL (09:52)
[2022-07-23 10:06] VITALS: BP 141/83; PULSE 76; RESP 18; TEMP 36.9; O2SAT 96
--- NOTE | 2022-07-23 10:08 | W.PM.DSUDISC ---
Date of service: 07/23/22 Time of Service: 10:08 Discharge Plan Disposition Patient Disposition: Home Discharge Details Attending Provider: Felipe Howard Primary Care Provider: Yelena Saldana Home Meds and New Rx's Prescriptions: No Action meloxicam 15 mg tablet 15 mg PO DAILY Qty: 30 1RF Rx Instructions: TAKE 1 TABLET BY MOUTH DAILY Shingrix (PF) 50 mcg/0.5 mL suspension for reconstitution 0.5 ml IM ONCE Qty: 1 1RF Rx Instructions: as a single dose ibuprofen 600 mg tablet 600 mg PO Q6H PRN (Reason: pain) Qty: 60 0RF bupropion HCl [Wellbutrin XL] 300 mg tablet extended release 24 hr 300 mg PO QAM Qty: 90 3RF albuterol sulfate [Ventolin HFA] 90 mcg/actuation HFA aerosol inhaler 2 puff IH 6XD PRN (Reason: shortness of breath or wheezing) Qty: 18 6RF Discharge Instructions Stand Alone Forms: Post-op Topical Cataract, Lourdes Vazquez ([facility]U) Discharge Orders Discharge Orders: Discharge Order (Routine); Ordered 07/23/22 Ordered By: Felipe Howard DS: Diagnosis Discharge Diagnosis (1) Nuclear age-related cataract, left eye: Status: Resolved (2) Posterior subcapsular age-related cataract of left eye: Status: Resolved
--- NOTE | 2022-07-23 10:09 | W.PM.OP ---
Date of service: 07/23/22 Time of Service: 10:09 Operative Note Operative Note DATE OF PROCEDURE: 07/23/22 PRE-OP DIAGNOSIS: Nuclear/posterior subcapsular cataract, left eye POST-OP DIAGNOSIS: same PROCEDURE: Cataract extraction using phacoemulsification with intraocular lens implant, left eye SURGEON: Felipe Howard ANESTHESIA TYPE: Local By Surgeon and MAC Refer to Anesthesia Record PATHOLOGY: none sent COMPLICATIONS: None Patient was transported to: same day Patient's condition: stable Implants: Rafita and Rafita Tecnis Eyhance [id number] Indications: Progressive decreased vision due to cataract, left eye Procedure Description: CATARACT SURGERY OPERATIVE REPORT PREOPERATIVE DIAGNOSIS: 1. Nuclear/posterior subcapsular cataract, left eye POSTOPERATIVE DIAGNOSIS: Same OPERATION: 1. Cataract extraction using phacoemulsification with posterior chamber intraocular lens implant, left eye. IOL: IOL Organic Lab Worker/Model: Rafita & Rafita Tecnis Eyhance DIB00 IOL Power: + 19.0 diopters IOL Serial Number: [id number] Optic Diameter: 6.0 mm Haptic/Overall Diameter: 13.0 mm PHACO INFO: [employer]urion Vision System with OZil and Active Fluidics Cumulative Dispersed Energy (CDE): 10.09 seconds SURGEON: Felipe Howard MD, MELANIA ANESTHESIA: Monitored A [facility] (MAC), with local sub-tenon's anesthetic infiltration COMPLICATIONS: None SPECIMENS: None INDICATIONS FOR PROCEDURE: Patient is a 71-year-old lady with history of diminished visual acuity in her left eye secondary to the development of nuclear/posterior subcapsular cataract. She has previously undergone cataract surgery in her right eye with vision corrected for distance. She is myopic in her left eye and reads without glasses, using her left eye. She essentially has monovision. She desires to remain myopic in her left eye postoperatively. Postoperative refractive target is -2.25 diopters. See office notes for detailed information. PROCEDURE: The correct surgical eye was identified and marked as the left eye and the pupil was dilated in the preoperative area using mydriatics and cycloplegics. The dilated pupil size was 7.0 mm. Oral sedation was administered in the form of an Imprimis MKO Melt (midazolam 3mg/ketamine 25mg/ondansetron 2mg).. The patient was brought to the operating room where cardiopulmonary monitoring was instituted and surgical time-out was performed, confirming the correct operative eye and IOL power. Topical anesthesia was administered and ophthalmic povidone-iodine 5% was instilled into the conjunctival fornices. Lidocaine gel was applied to the cornea and the vlad-ocular area was prepped with Betadine 10% solution and draped in the usual sterile fashion for intraocular surgery, including an aperture drape. A Tegaderm transparent film dressing was cut in half and used to cover the lashes and lid margins. Care was taken to sequester the lashes and lid margins under the Tegaderm dressing. A lid speculum was placed between the lids of the operative eye and the Jack Lux[employer] Revalia operating microscope was maneuvered into position. Deonna scissors were then used to make a conjunctival buttonhole approximately 6mm posterior to the limbus in the inferonasal quadrant. Blunt dissection was carried out to expose bare sclera, and a blunt-tipped sub-tenon?s anesthesia cannula was introduced and passed posteriorly along the globe where non-preserved plain lidocaine was injected into posterior sub-Tenon?s space. A sideport knife was used to make a paracentesis port superiorly/superiortemporally. Intraocular phenylephrine/lidocaine was injected int the anterior chamber.. The anterior chamber was filled with viscoelastic. A keratome knife was used to construct a 2-plane near-clear corneal tunnel extending 2.0mm into clear cornea temporally. A flap was raised on the anterior capsule and capsulorhexis forceps were used to complete a continuous curvilinear capsulorhexis of 5.5 mm. Balanced salt solution was then used to perform cortical cleaving hydrodissection and nuclear hydrodelineation until the lens could be freely rotated within the capsular bag. The lens nucleus was then disassembled and removed within the capsular bag and iris plane using phacoemulsification. Residual cortical material was removed using the 45-degree angled silicone I/A tip with 0.3mm port. The posterior capsule was carefully polished to remove as much residual lens epithelial cells as safely possible. The capsular bag was then inflated and the anterior chamber deepened with viscoelastic. The lens implant described above was inserted into the capsular bag using the Rafita and Rafita Simplicity pre-loaded injector. . A Kuglen hook was used to dial the IOL into position. Residual viscoelastic was then removed first from posterior to the IOL, then from the anterior chamber using the I/A handpiece. The lens implant was noted to center nicely within the capsular bag. The incisions were stromally hydrated, and the anterior chamber was reformed using BSS. Then 0.5cc of moxifloxacin 1.0mg/ml were injected into the capsular bag and anterior chamber. The incisions were checked with a Weck spear and found to be secure. Several drops of ophthalmic povidone-iodine 5% were then applied to the eye followed by two drops of Imprimis combination prednisolone/moxifloxacin/nepafenac solution. The drapes were removed and a clear plastic protective eye shield was placed over the eye. The patient was then returned to Same Day Surgery in stable condition.
[2022-07-23 10:30] VITALS: BP 156/74; PULSE 76; RESP 18; TEMP 36.9; O2SAT 98
--- NOTE | 2022-07-23 10:30 | W.ANESPOSTOP ---
Postoperative Evaluation Date, Time and Location Date Performed: 07/23/22 Time Performed: 10:15 Patient Location: Day Surgery Unit Vital Signs Most Recent Imported Vital Signs: Most Recent Vital Signs Temp Pulse Resp BP Pulse Ox 36.9 C 76 18 141/83 H 96 07/23/22 10:06 07/23/22 10:06 07/23/22 10:06 07/23/22 10:06 07/23/22 10:06 Pain Score Most Recent Pain Score: Most Recent Pain Score Pain Level 0 07/23/22 10:06 Assessment Mental Status: Awake (Alert & Oriented to Patient Baseline) Airway and Respiratory Function: Patent airway with normal (patient baseline) respiratory exam Cardiovascular Function: Hemodynamically Stable Hydration Status: Adequately Hydrated Nausea & Vomiting: No Nausea or Vomiting Pain: Pt. Denies Any Pain Peripheral Nerve Block: Patient did not receive a nerve block
== END 2022-07-23 10:38 | disposition home or self-care (01) ==
LOC: SUR 08:03
PROVIDERS: PCP Nurse Practitioner Family; Visit Provider Ophthalmology
PROC: (CPT 66984; principal; 2022-07-23 10:30)
DX: H25.12 Age-related nuclear cataract, left eye (principal); H25.042 Posterior subcapsular polar age-related cataract, left eye; J44.9 Chronic obstructive pulmonary disease, unspecified; Z98.41 Cataract extraction status, right eye
CPT/HCPCS: 66984; V2632

== ENCOUNTER 2022-09-09 18:25 | Outpatient (REF) | payer MEDICARE, SELFPAY | END 2022-09-09 18:26 | disposition home or self-care (01) | LOC: LBN 18:25 | PROVIDERS: PCP Nurse Practitioner Family; Visit Provider Nurse Practitioner Family | DX: L03.011 Cellulitis of right finger; L98.8 Other specified disorders of the skin and subcutaneous tissue | CPT/HCPCS: 87077; 87070; 87186; 87205 ==

== ENCOUNTER 2022-10-07 01:09 | Outpatient (CLI) | payer MEDICARE, SELFPAY ==
--- NOTE | 2022-10-07 08:30 | DI.MAMMO_ITS ---
Exam(s) MAMMO SCREENING EXAM: MAMMO SCREENING CLINICAL HISTORY: screening,z12.39. TECHNIQUE: Bilateral full field digital CC and MLO mammographic images were obtained with 3D tomosyn thesis and utilizing computer aided detection (CAD). COMPARISON: Prior mammogram of 2014 was reviewed. There are no interval mammograms. FINDINGS: There are no new findings in the right breast. Two nodular densities are again noted in the left breast. More anterior of these has appearance of a benign intramammary lymph node and is unchanged. The other nodule appears to have slightly increased in size from 2014, presently measuring approximat jalyn 9 by 7 mm. Recommend ultrasound. There are no malignant-appearing microcalcification groups in this region or elsewhere in either [address]. There is no significant architectural distortion nor skin thickening-retraction. IMPRESSION: 1. No radiographic evidence of malignancy in the right breast. 2. One of the 2 benign-appearing nodules in the left breast has slightly increased in size when rod red to 2014 (there are no interval mammograms since 2014). Recommend follow-up ultrasound to determi ne if this is solid or cystic. There is also the possibly that this is a benign lymph node which has slightly increased in size. BI-RADS Category 0 - Assessment Incomplete: Need additional imaging evaluation Breast Density - Category B - Scattered areas of fibroglandular density Breast density Category C or D implies that the patient has dense breast tissue. Dense breast tissue can make it harder to find cancer on a mammogram. Dense breast tissue is also associated with an incr eased risk of breast cancer. This information about the result of the mammogram report was provided to the patient to raise their awareness. Use this report when you speak with the patient about their risks for breast cancer, which includes their family history. At that time, you may recommend additional screening tests (Ultrasoun d or MRI) as these tests may add significant information. A negative radiographic report should not delay biopsy if a dominant or clinically suspicious mass is present. Up to ten percent of cancers are not identified on mammography. A negative report may reinforce clinical impression. Adenosis and dense breasts may obscure an underlying neoplasm. False positive reports average 6 to 10%. Patient will receive a letter notifying them of these results.
== END 2022-10-07 01:29 ==
LOC: DI 01:09
PROVIDERS: PCP Nurse Practitioner Family; Visit Provider Nurse Practitioner Family
DX: Z12.31 Encounter for screening mammogram for malignant neoplasm of breast (principal)
CPT/HCPCS: 77063; 77067

== ENCOUNTER → 2023-05-19 08:18 | Outpatient (BNVA) | payer MEDICARE, SELFPAY | PROVIDERS: PCP Nurse Practitioner Family; Referring Provider Nurse Practitioner Family | DX: M17.12 Unilateral primary osteoarthritis, left knee (principal) | CPT/HCPCS: 20610; J1040 ==

== ENCOUNTER 2023-10-21 12:51 | Inpatient (IN) | payer MEDICARE, SELFPAY ==
[2023-10-21] VITALS (51 sets, daily range): BP systolic 128–209; BP diastolic 53–95; PULSE 68–109; RESP 9–29; TEMP 36.2–37.5; O2SAT 95–100
--- NOTE | 2023-10-21 12:45 | RT.EKG_ITS ---
APPROVED REPORT Exam: Resting ECG Reason for Exam: Stemi Patient Location: E HR:78 bpm ECG Measurements Heart Rate 78 AXIS AL 183 P 54 QRSd 85 QRS 31 QT 409 T 61 QTc 467 Conclusion Sinus rhythm...normal P axis, V-rate 60- 99
--- NOTE | 2023-10-21 13:30 | DI.CT_ITS ---
Exam(s) CT BRAIN NECK CTA EXAM: CT BRAIN NECK CTA CLINICAL HISTORY: headache dizzy. TECHNIQUE: Imaging Protocol: Axial CT angiography was performed with multi-slice acquisition and mu lti-planar and/or 3D reconstructions. CONTRAST MATERIAL: Intravenous: Omnipaque 350 contrast volume:100 mL COMPARISON: No exams were available for comparison FINDINGS: CT Head W/O and W: Ventricles and Extra axial spaces: Normal in size and morphology for the patient's age. There is a 9 mm extra-axial partially calcified mass in the left middle cranial fossa most likely representing a m eningioma. Hemorrhage: None. Cerebral parenchyma: No mass effect is seen. No evidence of an acute territorial infarct. Midline shift: None. Brainstem/Cerebellum: Normal. Calvarium: Normal. Visualized Paranasal sinuses/Mastoids: Clear. Soft Tissues: Unremarkable. Enhancement: Unremarkable. CTA Neck W: Common Carotid: Mild atherosclerotic calcification. Right: No dissection, occlusion or significant stenosis. Left: No dissection, occlusion or significant stenosis. External Carotid: Right: No occlusion or significant stenosis. Left: No occlusion or significant stenosis. Internal Carotid: Right: No dissection, occlusion or significant stenosis. Left: No dissection, occlusion or significant stenosis. Vertebral Artery: Right: No dissection, occlusion or significant stenosis. Left: No dissection, occlusion or significant stenosis. Lung Apices: Normal. Bones: Within normal limits for the patient's age. Age-appropriate degenerative changes are present. Soft Tissues: Non-specific mildly prominent lymph nodes are seen in the neck. No pathologically enlar ged lymph nodes are seen. Thyroid gland: Unremarkable. CTA Brain W: Internal Carotid Arteries: Atherosclerotic calcification is present. No significant stenosis is seen. No evidence of occlusion or aneurysm is present. Anterior Cerebral Arteries: Right: No aneurysm, occlusion or significant stenosis. Left: No aneurysm, occlusion or significant stenosis. Middle Cerebral Arteries: Right: No aneurysm, occlusion or significant stenosis. Left: No aneurysm, occlusion or significant stenosis. Posterior Cerebral Arteries: Right: No aneurysm, occlusion or significant stenosis. Left: No aneurysm, occlusion or significant stenosis. The left posterior cerebral artery arises pred ominantly from the left posterior communicating artery. Vertebral Arteries: Right: No aneurysm, occlusion or significant stenosis. Left: No aneurysm, occlusion or significant stenosis. Basilar Artery: No aneurysm, occlusion or significant stenosis. IMPRESSION: 1. No large vessel occlusion or significant stenosis on the CT angiography of the head. 2. No acute intracranial process. 3. 0.9 cm extra-axial partially calcified lesion in the left middle cranial fossa likely reflecting a meningioma. 4. No occlusion or significant stenosis on the CT angiography of the neck. RADIATION DOSE DELIVERED: Total DLP DATA REPOSITORY: All CT scans at this facility are submitted to the National Radiology Data Registry (NRDR) Dose Index Registry (DIR) with the [employer] (ACR). RADIATION OPTIMIZATION: All CT scans at this facility use at least one of these dose optimization te chniques: automated exposure control; mA and/or kV adjustment per patient size (includes targeted exa ms where dose is matched to clinical indication); or iterative reconstruction.
[2023-10-21 13:35] LABS: Abs Immature Grans 0.01 10^3/uL (0.0-0.06); Absolute Basophil Count 0.03 10^3/uL (0.0-0.2); Absolute Eosinophil Count 0.06 10^3/uL (0.0-0.7); Absolute Lymphocyte Count 0.52 10^3/uL (1.2-3.4); Absolute Monocyte Count 0.31 10^3/uL (0.1-0.8); Absolute Neutrophil Count 4.01 10^3/uL (1.2-6.7); Basophils % 0.6 %; Eosinophils % 1.2 %; HCT 40.5 % (36.0-46.0); HGB 13.2 g/dL (11.2-15.7); Immature Grans % 0.2 %; Lymphocytes % 10.5 %; MCH 32.1 pg (27.0-33.0); MCHC 32.6 % (32.0-36.0); MCV 99 fL (80-95); MPV 10.1 fL (8.0-11.0); Monocytes % 6.3 %; Neutrophils % 81.2 %; Platelet Count 254 10^3/uL (130-400); RBC 4.11 10^6/uL (3.93-5.22); RDW 12.3 % (11.7-14.6); RDW-SD 45.1 fL; WBC 4.94 10^3/uL (4.4-10.8)
[2023-10-21] MEDS: Ondansetron 4 MG/2 ML VIAL IVP (13:35)
--- NOTE | 2023-10-21 13:45 | DI.MRI_ITS ---
Exam(s) MR BRAIN WO EXAM: MR BRAIN WO CLINICAL HISTORY: dizzy, headache, assess for cerebellar lesion TECHNIQUE: Multiplanar multisequence MRI of the brain was performed. COMPARISON: CT CT BRAIN NECK CTA from 10/21/2023 FINDINGS: CEREBRAL PARENCHYMA: There is no evidence of intracranial hemorrhage, mass effect, or shift of midline structures. There are no extra-axial fluid collections. Ventricles are not enlarged or shifted. No evidence of cerebe llar tonsillar ectopia. There is no significant focal signal abnormality in the cerebellar hemispheres nor within the joya, m idbrain, and thalami. There are few small FLAIR bright foci of signal abnormality in the bilateral white matter within the left frontal lobe and right frontoparietal region, not associated with hemorrhage, surrounding edema, nor restricted diffusion on DWI. There is no significant focal signal abnormality evident on diffusion imaging to suggest acute ischem ic event. There is an extra-axial meningeal based lesion in the left middle cranial fossa, as described on the recent CT scan measuring approximately 9 by 8 by 9 mm, most probably meningioma. There is no signal abnormality in the adjacent anterior aspect of the left temporal lobe. PITUITARY GLAND: No mass nor parasellar abnormality. No obvious abnormality in the cavernous sinuses. FLOW VOIDS: The expected flow void are noted. No evidence of obvious aneurysm nor obvious vascular ma lformation. PARANASAL SINUSES: There is mucosal thickening in the left sphenoid sinus. Right sphenoid sinus and remainder of the paranasal sinuses are clear as are the mastoid air cells. There are no mastoid effu sions evident. ORBITS: No obvious findings. IMPRESSION: Nonspecific mild white matter findings as described above. No evidence of hemorrhage nor infarct. 9 x 8 x 9 mm meningeal based benign-appearing lesion in left middle cranial fossa is probably a small meningioma, corresponding to what is seen on preceding CT scan. There is no edema in the adjacent a nterior aspect of the left temporal lobe. There is circumferential mucosal thickening in the left sphenoid sinus. Remainder of the paranasal s inuses and mastoid air cells are clear. Called by myself to ER physician DATA REPOSITORY:
[2023-10-21] MEDS: Normal Saline - Diluent 50 ML VIAL IJ (13:48)
[2023-10-21] MEDS: Omnipaque 350 MG/ML 100 ML BTL IJ (13:49)
[2023-10-21 13:51] LABS: ALT 14 U/L (14-59); AST 15 U/L (15-37); Alkaline Phosphatase 123 U/L (46-116); Anion Gap 10.5 mmol/L (3-11); BUN 15 mg/dL (7-18); Bilirubin, Total 0.46 mg/dL (0.2-1.0); CO2 24.5 mmol/L (21.0-32.0); CREATININE 0.8 mg/dL (0.55-1.02); Calcium 9.3 mg/dL (8.5-10.1); Chloride 104 mmol/L (98-107); Estimated GFR 78.24 (mL/min/1.73m2); Glucose 168 mg/dL (74-106); Potassium 3.9 mmol/L (3.5-5.1); Sodium 139 mmol/L (136-145); Total Protein 7.8 g/dL (6.4-8.2)
[2023-10-21 13:56] LABS: Troponin I < 50 ng/L (< or =60)
--- NOTE | 2023-10-21 14:22 | ED.GENADUL_ITS ---
Discharge Plan Disposition Patient Disposition: Admit to [facility] Condition: Serious Discharge Details Chief Complaint: Nausea/Vomit/Diar Clinical Impression: Hypertensive emergency Primary Care Provider: Yelena Saldana ED Provider: Chas Lucas Home Meds and New Rx's Prescriptions: No Action ibuprofen 600 mg tablet 600 mg PO Q6H PRN (Reason: pain) Qty: 60 0RF albuterol sulfate [Ventolin HFA] 90 mcg/actuation HFA aerosol inhaler 2 puff IH 6XD PRN (Reason: shortness of breath or wheezing) Qty: 18 6RF bupropion HCl [Wellbutrin XL] 300 mg tablet extended release 24 hr 300 mg PO QAM Qty: 90 3RF HPI General Mode of arrival: ambulatory . Date/Time Provider Initiated Documentation: 10/21/23 13:30 . Limitations to Documentation: no limitations . Information obtained by: EMS . HPI Narrative: 73-year-old male presents with severe nausea, vomiting, and headache that came on rather suddenly earlier today. No trauma. Patient denies associated neck stiffness. No fever. Related Data Home Medications ?Medication ?Instructions ?Recorded ?Confirmed ibuprofen 600 mg tablet 600 mg PO Q6H PRN pain #60 tabs 20 10/21/23 albuterol sulfate 90 mcg/actuation 2 puff inhalation 6XD PRN 06/21/22 10/21/23 aerosol inhaler (Ventolin HFA) shortness of breath or wheezing #18 grams bupropion HCl 300 mg 24 hr tablet, 300 mg PO QAM #90 tabs 09/19/23 10/21/23 extended release (Wellbutrin XL) Previous Rx's ?Medication ?Instructions ?Recorded ibuprofen 600 mg tablet 600 mg PO Q6H PRN pain #60 tabs 02/14/20 albuterol sulfate 90 mcg/actuation 2 puff inhalation 6XD PRN 06/21/22 aerosol inhaler (Ventolin HFA) shortness of breath or wheezing #18 grams bupropion HCl 300 mg 24 hr tablet, 300 mg PO QAM #90 tabs 09/19/23 extended release (Wellbutrin XL) Allergies Allergy/AdvReac Type Severity Reaction Status Date / Time PETS/HORSES/HAY/DUST/DANDER/POLLEN Allergy Unknown Itching Uncoded 09/27/23 13:31 General Stated Complaint: Nausea/Vomit/Diar PRIYANKA: 3 Review of Systems All systems reviewed & are unremarkable except as noted in HPI and below Constitutional Constitutional: Denies fever(s) Neurologic Neurologic: Reports as per HPI Exam Const General: cooperative HENMT Mouth: moist mucous membranes Eyes Conjunctivae: normal conjunctivae Sclera: normal sclerae EOM: EOM intact bilaterally Resp Auscultation: clear to auscultation bilaterally, no rales, no rhonchi and no wheezes Cardio Rate: regular rate and not tachycardic Rhythm: regular rhythm GI Palpation: soft, not firm, no guarding, no masses, not rigid and nontender Skin General skin exam: no rashes or lesions noted Neuro General: patient alert, patient awake, patient oriented x3 and tone normal Cognition: normal cognition Speech: speech normal Motor: strength 5/5 throughout Sensory Exam: no sensory deficits noted Extrem General: no edema Course Vital Signs Vital signs: Vital Signs Temperature 36.2 C L 10/21/23 12:52 Pulse 82 10/21/23 12:52 Blood Pressure 209/74 H 10/21/23 12:52 Pulse Oximetry 100 10/21/23 12:52 Temperature 36.8 C 10/21/23 14:17 Temperature Source Temporal Artery Scan 10/21/23 14:17 Pulse 81 10/21/23 14:17 Pulse 81 10/21/23 14:05 Respiratory Rate 18 10/21/23 14:17 Respiratory Effort Normal, Non-Labored 10/21/23 14:17 Respiratory Depth Normal 10/21/23 14:17 Respiratory Pattern Normal 10/21/23 14:17 Blood Pressure 168/88 H 10/21/23 14:17 Blood Pressure Mean 114 10/21/23 14:17 Blood Pressure Position Supine 10/21/23 14:17 Pulse Oximetry 97 10/21/23 14:17 Oxygen Delivery Method Room Air 10/21/23 14:17 Oxygen Flow Rate 0 10/21/23 14:17 Pain Level 5 10/21/23 14:17 Lab/Test Results Lab/Test Results: Laboratory Tests Range/Units 10/21/23 13:00 WBC (4.4-10.8) 10^3/uL 4.94 RBC (3.93-5.22) 10^6/uL 4.11 Hgb (11.2-15.7) g/dL 13.2 Hct (36.0-46.0) % 40.5 MCV (80-95) fL 99 H MCH (27.0-33.0) pg 32.1 MCHC (32.0-36.0) % 32.6 RDW (11.7-14.6) % 12.3 Plt Count (130-400) 10^3/uL 254 MPV (8.0-11.0) fL 10.1 Immature Gran % % 0.2 Neutrophils % % 81.2 Lymphocytes % % 10.5 Monocytes % % 6.3 Eosinophils % % 1.2 Basophils % % 0.6 Nucleated RBC % (0.0-0.3) % 0.0 Absolute Neutrophils (1.2-6.7) 10^3/uL 4.01 Absolute Lymphocytes (1.2-3.4) 10^3/uL 0.52 L Absolute Monocytes (0.1-0.8) 10^3/uL 0.31 Absolute Eosinophils (0.0-0.7) 10^3/uL 0.06 Absolute Basophils (0.0-0.2) 10^3/uL 0.03 Sodium (136-145) mmol/L 139 Potassium (3.5-5.1) mmol/L 3.9 Chloride (98-107) mmol/L 104 Carbon Dioxide (21.0-32.0) mmol/L 24.5 Anion Gap (3-11) mmol/L 10.5 BUN (7-18) mg/dL 15 Creatinine (0.55-1.02) mg/dL 0.8 Est GFR (CKD-EPI 2020) (mL/min/1.73m2) 78.24 Glucose (74-106) mg/dL 168 H Calcium (8.5-10.1) mg/dL 9.3 Total Bilirubin (0.2-1.0) mg/dL 0.46 AST (15-37) U/L 15 ALT (14-59) U/L 14 Alkaline Phosphatase (46-116) U/L 123 H Troponin I (< or =60) ng/L < 50 Total Protein (6.4-8.2) g/dL 7.8 Albumin (3.4-5.0) g/dL 4.0 Medical Decision Making 73-year-old female here with headache dizziness with associated nausea and vomiting. Patient hypertensive on arrival 209/74. Patient was given ondansetron IV for nausea. Considered acute life-threatening intracranial hemorrhage. CT of the brain with CTA of brain and neck interpreted by radiology: IMPRESSION: 1. No large vessel occlusion or significant stenosis on the CT angiography of the head. 2. No acute intracranial process. 3. 0.9 cm extra-axial partially calcified lesion in the left middle cranial fossa likely reflecting a meningioma. 4. No occlusion or significant stenosis on the CT angiography of the neck. Concern for posterior circulation CVA. Plan to obtain MRI. Consider hypertensive emergency. Repeat blood pressure 168/88. 1640 --patient was reassessed, she continues to have dizziness upon sitting up. Blood pressure again elevated with systolic greater than 200. Plan to start nicardipine infusion. Suspect hypertensive emergency and will admit for further care. I spoke with Dr. Hernandez, on-call hospitalist, discussed ED presentation course, he will admit the patient. Lab Data Lab results reviewed: Yes I reviewed the patient's lab results. Labs: Laboratory Tests Range/Units 10/21/23 13:00 WBC (4.4-10.8) 10^3/uL 4.94 RBC (3.93-5.22) 10^6/uL 4.11 Hgb (11.2-15.7) g/dL 13.2 Hct (36.0-46.0) % 40.5 MCV (80-95) fL 99 H MCH (27.0-33.0) pg 32.1 MCHC (32.0-36.0) % 32.6 RDW (11.7-14.6) % 12.3 Plt Count (130-400) 10^3/uL 254 MPV (8.0-11.0) fL 10.1 Immature Gran % % 0.2 Neutrophils % % 81.2 Lymphocytes % % 10.5 Monocytes % % 6.3 Eosinophils % % 1.2 Basophils % % 0.6 Nucleated RBC % (0.0-0.3) % 0.0 Absolute Neutrophils (1.2-6.7) 10^3/uL 4.01 Absolute Lymphocytes (1.2-3.4) 10^3/uL 0.52 L Absolute Monocytes (0.1-0.8) 10^3/uL 0.31 Absolute Eosinophils (0.0-0.7) 10^3/uL 0.06 Absolute Basophils (0.0-0.2) 10^3/uL 0.03 Sodium (136-145) mmol/L 139 Potassium (3.5-5.1) mmol/L 3.9 Chloride (98-107) mmol/L 104 Carbon Dioxide (21.0-32.0) mmol/L 24.5 Anion Gap (3-11) mmol/L 10.5 BUN (7-18) mg/dL 15 Creatinine (0.55-1.02) mg/dL 0.8 Est GFR (CKD-EPI 2020) (mL/min/1.73m2) 78.24 Glucose (74-106) mg/dL 168 H Calcium (8.5-10.1) mg/dL 9.3 Total Bilirubin (0.2-1.0) mg/dL 0.46 AST (15-37) U/L 15 ALT (14-59) U/L 14 Alkaline Phosphatase (46-116) U/L 123 H Troponin I (< or =60) ng/L < 50 Total Protein (6.4-8.2) g/dL 7.8 Albumin (3.4-5.0) g/dL 4.0 Quality:SDOH Health Related Social Needs: No Data to Display Critical Care Time Critical Care Time Critical Care Time: Yes Total Critical Care Time: 50 Attestation: I spent greater than 50 minutes addressing this patient's immediate life threats. Please see MDM section of note. This time was spent engaged in work directly related to the patient's care, exclusive of separate procedures, and failure to initiate these interventions would have likely resulted in clinically significant or life threatening deterioration in the patient's condition. PFSH All Active Problems (Updated 10/21/23 @ 16:43 by Chas Lucas MD) Hypertensive emergency (Acute) Excessive cerumen in both ear canals (Acute) Left knee DJD (Acute) DEPO MEDROL 05/19/23 Excessive cerumen in left ear canal (Acute) Hyperlipidemia (Acute) Depression (Chronic) Obstructive airway disease (Acute) Seasonal allergies (Acute 10/04/13) Medical History COVID-19 03/2021, immunized, given monoclonal antibodies Lipoma Diverticula of colon Cataract R eye Allergic rhinitis Asthma Abnormal mammogram (10/04/13) Surgical History S/P excision of lipoma History of colonoscopy (~03/01/19) S/P ORIF (open reduction internal fixation) fracture (06/20/18) For right distal radius fracture Fracture of radius, distal, right, closed Status post ORIF on 06/20/2018 Ligation of fallopian tube (~1981) Family History Mother Hyperlipidemia Stroke Father , at 80 Heart disease Lung disease Sister No problems noted. Brother Brain tumor Brother No problems noted. Daughter No problems noted. Son No problems noted. Son No problems noted. Maternal Grandfather No problems noted. Maternal Grandmother Parkinson disease Paternal Grandfather Stroke Paternal Grandmother No problems noted. 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 Pets and animals: No Sexually active: No Do you think of yourself as: straight/heterosexual Current gender identity: female What is your relationship status?: How often do you talk on the phone with friends or family?: three or more times per week How often do you get together with friends or relatives?: three or more times per week Do you belong to any clubs or organized social groups?: no Panel score (0-1 are the most socially isolated patients): 1 What type of physical activity do you participate in: other Duration: > 90 minutes/day Frequency: daily Special mari needs: No Seatbelt use: sometimes Helmet use: No Drive intox or ride w/intox dedicated truck driver: No Do you feel safe at home: Yes Do you feel safe in your relationship?: Yes Victim of physical abuse: No Victim of emotional abuse: No Victim of sexual abuse: No Would you like helpful sources: No
--- NOTE | 2023-10-21 16:46 | W.PM.HP.N ---
Date of service: 10/21/23 Time of Service: 16:48 Assessment and Plan Assessment and plan (1) Hypertensive emergency: Status: Acute Assessment and plan: - Patient initially hypertensive on arrival which did improve with antiemetic -However, blood pressure increased again with systolic greater than 200 as well as headache and nausea -Patient was started nicardipine drip in the emergency department, will continue -monitor patient's blood pressure and plan to titrate drip with goal blood pressure of systolic less than 180 but no less than 160 -continue to treat patient's nausea with IV Zofran which worked in the emergency department (2) Depression: Status: Chronic Assessment and plan: - Continue home bupropion History of Present Illness History of Present Illness Chief Complaint: headache, nausea, vomiting Narrative: Previously healthy 73-year-old female past medical history only of depression who presents emergency department sudden onset of headache, nausea and vomiting. Patient was in her usual state of health was driving to the area from [facility] when she began to have headache with associated nausea and vomiting. She denies any trauma, lightheadedness, dizziness, visual changes, or fever. In the emergency department she was noted as having normal vital signs with the exception of initial blood pressure of 209/74. She was given Zofran which did improve her nausea and her blood pressure with systolics going back down to the 160s. There was concern for intracranial hemorrhage so CT angio head and neck was performed that did not show any acute findings. Additionally, there was potential concern for CVA for which an MRI was done and did not show any acute findings. However, when staff attempted to sit patient up and ambulate her she again became severely hypertensive with systolics in the 200 and her headache returned. At which time emergency room physician initiated nicardipine drip and paged hospitalist for admission for patient with hypertensive emergency requiring ICU admission for close monitoring and nicardipine drip. Review of Systems All systems reviewed & are unremarkable except as noted in HPI and below PFSH All Active Problems (Updated 10/21/23 @ 16:43 by Chas Lucas MD) Hypertensive emergency (Acute) Excessive cerumen in both ear canals (Acute) Left knee DJD (Acute) DEPO MEDROL 05/19/23 Excessive cerumen in left ear canal (Acute) Hyperlipidemia (Acute) Depression (Chronic) Obstructive airway disease (Acute) Seasonal allergies (Acute 10/04/13) Medical History COVID-19 03/2021, immunized, given monoclonal antibodies Lipoma Diverticula of colon Cataract R eye Allergic rhinitis Asthma Abnormal mammogram (10/04/13) Surgical History S/P excision of lipoma History of colonoscopy (~03/01/19) S/P ORIF (open reduction internal fixation) fracture (06/20/18) For right distal radius fracture Fracture of radius, distal, right, closed Status post ORIF on 06/20/2018 Ligation of fallopian tube (~1981) Family History Mother Hyperlipidemia Stroke Father , at 80 Heart disease Lung disease Sister No problems noted. Brother Brain tumor Brother No problems noted. Daughter No problems noted. Son No problems noted. Son No problems noted. Maternal Grandfather No problems noted. Maternal Grandmother Parkinson disease Paternal Grandfather Stroke Paternal Grandmother No problems noted. 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 Pets and animals: No Sexually active: No Do you think of yourself as: straight/heterosexual Current gender identity: female What is your relationship status?: How often do you talk on the phone with friends or family?: three or more times per week How often do you get together with friends or relatives?: three or more times per week Do you belong to any clubs or organized social groups?: no Panel score (0-1 are the most socially isolated patients): 1 What type of physical activity do you participate in: other Duration: > 90 minutes/day Frequency: daily Special mari needs: No Seatbelt use: sometimes Helmet use: No Drive intox or ride w/intox crew truck driver: No Do you feel safe at home: Yes Do you feel safe in your relationship?: Yes Victim of physical abuse: No Victim of emotional abuse: No Victim of sexual abuse: No Would you like helpful sources: No Meds Allergies and Home Medications Allergies Allergy/AdvReac Type Severity Reaction Status Date / Time PETS/HORSES/HAY/DUST/DANDER/POLLEN Allergy Unknown Itching Uncoded 09/27/23 13:31 Home Medications ?Medication ?Instructions ?Recorded ?Confirmed ?Type ibuprofen 600 mg tablet 600 mg PO Q6H PRN pain #60 tabs 02/14/20 10/21/23 Rx albuterol sulfate 90 mcg/actuation 2 puff inhalation 6XD PRN 06/21/22 10/21/23 Rx aerosol inhaler (Ventolin HFA) shortness of breath or wheezing #18 grams bupropion HCl 300 mg 24 hr tablet, 300 mg PO QAM #90 tabs 09/19/23 10/21/23 Rx extended release (Wellbutrin XL) Exam Narrative Exam Narrative: well appearing female laying in bed in no acute distress, AOx4, heart RRR, lungs CTAB, abdomen soft, non-tender, non-distended, EOMI, PERRLA, normal sensation and strength in bilateral upper and lower extremities Results Labs 10/21/23 13:00 10/21/23 13:00 Labs: Laboratory Results - last 24 hr 10/21/23 13:00 WBC 4.94 RBC 4.11 Hgb 13.2 Hct 40.5 MCV 99 H MCH 32.1 MCHC 32.6 RDW 12.3 Plt Count 254 MPV 10.1 Immature Gran % 0.2 Neutrophils % 81.2 Lymphocytes % 10.5 Monocytes % 6.3 Eosinophils % 1.2 Basophils % 0.6 Nucleated RBC % 0.0 Absolute Neutrophils 4.01 Absolute Lymphocytes 0.52 L Absolute Monocytes 0.31 Absolute Eosinophils 0.06 Absolute Basophils 0.03 Sodium 139 Potassium 3.9 Chloride 104 Carbon Dioxide 24.5 Anion Gap 10.5 BUN 15 Creatinine 0.8 Est GFR (CKD-EPI 2020) 78.24 Glucose 168 H Calcium 9.3 Total Bilirubin 0.46 AST 15 ALT 14 Alkaline Phosphatase 123 H Troponin I < 50 Total Protein 7.8 Albumin 4.0 Last Vital Signs Temp 98.2 F 10/21/23 14:17 Pulse 83 07/26/24 16:32 Resp 14 10/21/23 15:00 BP 202/75 H 10/21/23 16:32 Pulse Ox 97 10/21/23 16:30 Time Spent Time spent with Patient: >75 minutes Time was spent: preparing to see the patient(eg.review tests), obtaining and/or reviewing separately otained hiistory, ordering medications,tests, procedures, referring, communicating with other health healthcare consultant, indepentently interpreting results, counseling the patient and care coordination
[2023-10-21] MEDS: niCARdipine 25 MG in Normal Saline 240 ML 50 MG IV (16:59)
--- NOTE | 2023-10-21 17:49 | W.PC.ACHO ---
Registration Status: Primary Language: Preferred Language: ED Information & Data Chief Complaint Nausea/Vomit/Diar 10/21/23 14:23 Triage Note Patient was returning with 10/21/23 12:52 family from [facility] started complaining of nausea. Enroute home started vomiting. No BM for 1 week Medical / Surgical History (Last Reviewed 10/21/23 @ 15:03 by Chas Lucas MD) COVID-19 Lipoma Diverticula of colon Cataract Allergic rhinitis Asthma Abnormal mammogram (10/04/13) (Last Reviewed 10/21/23 @ 15:03 by Chas Lucas MD) S/P excision of lipoma History of colonoscopy (~03/01/19) S/P ORIF (open reduction internal fixation) fracture (06/20/18) Fracture of radius, distal, right, closed Ligation of fallopian tube (~1981) Most Recent Vital Signs Temperature 36.8 C 10/21/23 14:17 Temperature Source Temporal Artery Scan 10/21/23 14:17 Pulse 90 10/21/23 17:39 Pulse 93 H 10/21/23 17:31 Respiratory Rate 16 10/21/23 17:31 Respiratory Effort Normal, Non-Labored 10/21/23 14:17 Respiratory Depth Normal 10/21/23 14:17 Respiratory Pattern Normal 10/21/23 14:17 Blood Pressure 150/63 H 10/21/23 17:39 Blood Pressure Mean 90 10/21/23 17:39 Blood Pressure Position Supine 10/21/23 14:17 Pulse Oximetry 96 10/21/23 17:31 Oxygen Delivery Method Room Air 10/21/23 14:17 Oxygen Flow Rate 0 10/21/23 14:17 Pain Level 5 10/21/23 14:17 Allergies PETS/HORSES/HAY/DUST/DANDER/POLLEN Allergy (Unknown, Uncoded 09/27/23 13:31) Itching itchy watery eyes sneezing Active Medications Generic Name Dose Route Start Last Admin Trade Name Freq PRN Reason Stop Dose Admin Nicardipine HCl 25 mg/ Sodium 250 mls @ 50 mls/hr 10/21/23 16:45 10/21/23 17:28 Chloride IV 2.5 mg/hr INFUSION FRANCIS 25 mls/hr Titration Protocol 5 MG/HR IV IV Catheter Type [] Saline Lock IV Catheter Type [Right Peripheral IV Antecubital] IV Catheter Gauge [] 22 IV Catheter Gauge [Right 18 Antecubital] Diet Orders Category Date Time Status Regular/Normal [DIET] Nutrition 10/21/23 Dinner Active Diagnostics 10/21/23 Range/Units 13:00 WBC 4.94 (4.4-10.8) 10^3/uL RBC 4.11 (3.93-5.22) 10^6/uL Hgb 13.2 (11.2-15.7) g/dL Hct 40.5 (36.0-46.0) % MCV 99 H (80-95) fL MCH 32.1 (27.0-33.0) pg MCHC 32.6 (32.0-36.0) % RDW 12.3 (11.7-14.6) % Plt Count 254 (130-400) 10^3/uL MPV 10.1 (8.0-11.0) fL Immature Gran % 0.2 % Neutrophils % 81.2 % Lymphocytes % 10.5 % Monocytes % 6.3 % Eosinophils % 1.2 % Basophils % 0.6 % Nucleated RBC % 0.0 (0.0-0.3) % Absolute Neutrophils 4.01 (1.2-6.7) 10^3/uL Absolute Lymphocytes 0.52 L (1.2-3.4) 10^3/uL Absolute Monocytes 0.31 (0.1-0.8) 10^3/uL Absolute Eosinophils 0.06 (0.0-0.7) 10^3/uL Absolute Basophils 0.03 (0.0-0.2) 10^3/uL Sodium 139 (136-145) mmol/L Potassium 3.9 (3.5-5.1) mmol/L Chloride 104 (98-107) mmol/L Carbon Dioxide 24.5 (21.0-32.0) mmol/L Anion Gap 10.5 (3-11) mmol/L BUN 15 (7-18) mg/dL Creatinine 0.8 (0.55-1.02) mg/dL Est GFR (CKD-EPI 2020) 78.24 (mL/min/1.73m2) Glucose 168 H (74-106) mg/dL Calcium 9.3 (8.5-10.1) mg/dL Total Bilirubin 0.46 (0.2-1.0) mg/dL AST 15 (15-37) U/L ALT 14 (14-59) U/L Alkaline Phosphatase 123 H (46-116) U/L Troponin I < 50 (< or =60) ng/L Total Protein 7.8 (6.4-8.2) g/dL Albumin 4.0 (3.4-5.0) g/dL Intake and Output - 24 Hour Total 10/21/23 12:46 thru 10/21/23 17:28 Intake Total 24.167 Balance 24.167 Weight 71.9 kg Intake: IV 24.167 Other: Emesis Description Retching Falls Risk Assessment History of Falls No History 10/21/23 13:07 Contributing Factors No Factors 10/21/23 13:07 Ambulatory Aids Independent 10/21/23 13:07 Tubes/Lines None 10/21/23 13:07 Gait Evaluation W/no contributing factors 10/21/23 13:07 Cognition No cognitive impairment 10/21/23 13:07 Fall Total Score 10 10/21/23 13:07 Level of Risk Standard/Low Risk 10/21/23 13:07 Problems (Last Reviewed 10/21/23 @ 15:03 by Chas Lucas MD) Hypertensive emergency (Acute) Depression (Chronic) v v v v v v v v v Sending and/or Receiving Nurses: Please use comment section below to note any information pertinent to the patient hand-off not included above. Information / Comments: All questions answered. Report received from: Natan Smith RN
[2023-10-21] MEDS: Normal Saline Flush 10 ML SYR IVP (18:38)
[2023-10-21] MEDS: Normal Saline 10 ML VIAL IJ (18:39)
[2023-10-21] MEDS: Enoxaparin 40 MG/0.4 ML SYR SC (18:39)
[2023-10-21] MEDS: Pantoprazole 40 MG VIAL IVP (18:39)
[2023-10-21] MEDS: Docusate Sodium 100 MG CAP PO (18:50)
[2023-10-21] MEDS: Polyethylene Glycol 3350 17 GM PACKET PO (18:50)
[2023-10-22] VITALS (15 sets, daily range): BP systolic 107–147; BP diastolic 50–76; PULSE 68–87; RESP 11–21; TEMP 36.5–36.8; O2SAT 94–98
[2023-10-22 06:03] LABS: HCT 38.4 % (36.0-46.0); HGB 12.5 g/dL (11.2-15.7); MCH 32.1 pg (27.0-33.0); MCHC 32.6 % (32.0-36.0); MCV 99 fL (80-95); Platelet Count 232 10^3/uL (130-400); RBC 3.89 10^6/uL (3.93-5.22); RDW 12.4 % (11.7-14.6); RDW-SD 44.8 fL; WBC 4.32 10^3/uL (4.4-10.8)
[2023-10-22 06:20] LABS: ALT 12 U/L (14-59); AST 12 U/L (15-37); Albumin 3.5 g/dL (3.4-5.0); Alkaline Phosphatase 108 U/L (46-116); Anion Gap 7.7 mmol/L (3-11); BUN 12 mg/dL (7-18); Bilirubin, Total 0.43 mg/dL (0.2-1.0); CO2 27.3 mmol/L (21.0-32.0); CREATININE 0.8 mg/dL (0.55-1.02); Calcium 8.9 mg/dL (8.5-10.1); Chloride 106 mmol/L (98-107); Estimated GFR 78.24 (mL/min/1.73m2); Glucose 93 mg/dL (74-106); Potassium 3.6 mmol/L (3.5-5.1); Sodium 141 mmol/L (136-145); Total Protein 7.2 g/dL (6.4-8.2)
[2023-10-22] MEDS: Normal Saline Flush 10 ML SYR IVP (07:45)
[2023-10-22] MEDS: buPROPion-XL 150 MG TABCR 300 MG PO (07:45)
[2023-10-22] MEDS: Polyethylene Glycol 3350 17 GM PACKET PO (08:23)
[2023-10-22] MEDS: Milk of Magnesia 30 ML CUP PO (08:23)
--- NOTE | 2023-10-22 08:30 | PDOC.CMIN ---
Date of service: 10/22/23 Time of Service: 08:30 Care Management Initial Assmt Initial Assessment Reason for Hospitalization: hypertensive emergency Functional Status/Living Situation Town of Residence: [place] Employment Status: Employed ([employer]) Instrumental Activities of Daily Living (ADLs): Independent Medications Medication Management: No Issues/Barriers identified Advance Directives Advance Directives: Do you have an Advance Directive: N 11/05/13 04:59 AD On File at [facility]: N 11/05/13 04:59 Date Asked 07/14/22 07/27/22 09:15 AD Date Reviewed COLST On File at [facility] COLST Date Scanned Code Status Resuscitation Status Full Code Insurance Coverage/Financial Issues Insurance: BC/BS Medicare Advantage Care Team Visit Care Team Role Provider Type Yelena Saldana NP Primary Care Provider NURSE PRACTITIONER Chas Lucas MD Emergency Provider [facility] STAFF PHYSICIAN Eugene Hernandez MD Admit Provider [facility] STAFF PHYSICIAN Attending Provider Discharge Potential Discharge Needs: PCP F/U Appt Anticipated Barriers to Discharge: None Identified Patient/Family Education Needs: Review discharge instructions, discuss Ask Me Three Transportation: Private vehicle Plan: Anticipate Cecelia will be discharged home with no new services when medically stable. She will follow up with her PCP and plan of care and transport with a friend. CM will follow and continue to support discharge needs. PFSH All Active Problems (Updated 10/21/23 @ 16:43 by Chas Lucas MD) Hypertensive emergency (Acute) Excessive cerumen in both ear canals (Acute) Left knee DJD (Acute) DEPO MEDROL 05/19/23 Excessive cerumen in left ear canal (Acute) Hyperlipidemia (Acute) Depression (Chronic) Obstructive airway disease (Acute) Seasonal allergies (Acute 10/04/13) Medical History COVID-19 03/2021, immunized, given monoclonal antibodies Lipoma Diverticula of colon Cataract R eye Allergic rhinitis Asthma Abnormal mammogram (10/04/13) Surgical History S/P excision of lipoma History of colonoscopy (~03/01/19) S/P ORIF (open reduction internal fixation) fracture (06/20/18) For right distal radius fracture Fracture of radius, distal, right, closed Status post ORIF on 06/20/2018 Ligation of fallopian tube (~1982) Family History Mother Hyperlipidemia Stroke Father , at 80 Heart disease Lung disease Sister No problems noted. Brother Brain tumor Brother No problems noted. Daughter No problems noted. Son No problems noted. Son No problems noted. Maternal Grandfather No problems noted. Maternal Grandmother Parkinson disease Paternal Grandfather Stroke Paternal Grandmother No problems noted. 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 Pets and animals: No Sexually active: No Do you think of yourself as: straight/heterosexual Current gender identity: female What is your relationship status?: How often do you talk on the phone with friends or family?: three or more times per week How often do you get together with friends or relatives?: three or more times per week Do you belong to any clubs or organized social groups?: no Panel score (0-1 are the most socially isolated patients): 1 What type of physical activity do you participate in: other Duration: > 90 minutes/day Frequency: daily Special mari needs: No Seatbelt use: sometimes Helmet use: No Drive intox or ride w/intox petrol tanker driver: No Do you feel safe at home: Yes Do you feel safe in your relationship?: Yes Victim of physical abuse: No Victim of emotional abuse: No Victim of sexual abuse: No Would you like helpful sources: No SDOH(Care Management) Screening Will the Patient Participate in the Screening?: Yes Do you worry about having a steady place to live?: no Problems where you live: no known problems In the past 12 months, have you had to go without electric, gas, oil or water in your home?: no Have you or anyone in your house had to go without enough food to eat?: no Has lack of transportation kept you from medical appointments or from doing things needed for daily living?: no Has anyone in your support network made you feel unsafe for any reason?: no
--- NOTE | 2023-10-22 09:16 | DSE_ITS ---
Date of service: 10/22/23 Time of Service: 09:16 DS: Diagnosis Discharge Diagnosis (1) Hypertensive emergency: Status: Acute (2) Depression: Status: Chronic Discharge Plan Disposition Patient Disposition: Home Condition: Good Discharge Details Reason For Visit: hypertensive emergency Admit Date/Time: 10/21/23 16:43 Admit Provider: Eugene Hernandez Attending Provider: Eugene Hernandez [facility]: Patient initially presented to the hospital with headache nausea and vomiting that was ultimately determined to be secondary to hypertensive emergency with systolic blood pressures greater than 200. She had symptomatic relief with Zofran but did require brief period of being placed on nicardipine drip in order to improve blood pressures. She was subsequently off of the nicardipine drip overnight and had significant improvement of her blood pressures, so much so that she will not require antihypertensive at discharge. Ultimately, is determined that the patient was stable for discharge home. Home Meds and New Rx's Prescriptions: Continued ibuprofen 600 mg tablet 600 mg PO Q6H PRN (Reason: pain) Qty: 60 0RF bupropion HCl [Wellbutrin XL] 300 mg tablet extended release 24 hr 300 mg PO QAM Qty: 90 3RF Discontinued albuterol sulfate [Ventolin HFA] 90 mcg/actuation HFA aerosol inhaler 2 puff IH 6XD PRN (Reason: shortness of breath or wheezing) Qty: 18 6RF Discharge Instructions Activity:: Activity as Tolerated Equipment/Supplies:: No Equipment Needed Diet:: As Tolerated Discharge Orders Discharge Orders: Discharge Order (Routine); Ordered 10/22/23 Ordered By: Eugene Hernandez DS: Summary Time Spent with Patient providing and/or coordinating discharge services: Greater than 30 minutes Status at Discharge Functional status at discharge: independent ambulation Overall status at discharge: patient is back to baseline Mental Status: mental status grossly normal Speech and Movement: speech and movement normal Mood: congruent mood Affect: normal affect Quality:SDOH Health Related Social Needs: No Data to Display Exam Narrative Exam Narrative: well appearing female laying in bed in no acute distress, AOx4, heart RRR, lungs CTAB, abdomen soft, non-tender, non-distended, EOMI, PERRLA, normal sensation and strength in bilateral upper and lower extremities Psych Mental Status: mental status grossly normal Speech and Movement: speech and movement normal Mood: congruent mood Affect: normal affect DS: Data Vitals/I&O Vitals and I&O: Vital Signs Temperature 98.2 F 10/22/23 08:03 Temperature Source Temporal Artery Scan 10/22/23 04:00 Pulse 70 10/22/23 08:03 Pulse 85 10/22/23 06:02 Respiratory Rate 18 10/22/23 08:03 Respiratory Effort Normal, Non-Labored 10/22/23 08:03 Respiratory Depth Normal 10/22/23 08:03 Respiratory Pattern Normal 10/22/23 08:03 Blood Pressure 147/76 H 10/22/23 08:03 Blood Pressure Mean 99 10/22/23 08:03 Blood Pressure Position Supine 10/21/23 17:40 Pulse Oximetry 96 10/22/23 08:03 Oxygen Delivery Method Room Air 10/22/23 00:00 Oxygen Flow Rate 0 10/22/23 00:00 Pain Level 0 10/22/23 08:03 Intake & Output 10/21/23 10/22/23 10/22/23 17:59 05:59 17:59 Intake Total 24.167 / 24.167 255.417 / 279.584 Output Total 775 / 775 Balance 24.167 / 24.167 -519.583 / -495.416 Weight 147 lb 14.883 oz Intake: IV 24.167 / 24.167 15.417 / 39.584 Oral 240 / 240 Output: Urine 775 / 775 Other: Urine Color Pale Urine Appearance Clear Urine Odor None Emesis Description Retching Voiding Methods Bedside Commode Data Completed and Pending Labs on day of discharge: Labs from last 24 hours 10/22/23 10/21/23 05:34 13:00 WBC 4.32 L 4.94 RBC 3.89 L 4.11 Hgb 12.5 13.2 Hct 38.4 40.5 MCV 99 H 99 H MCH 32.1 32.1 MCHC 32.6 32.6 RDW 12.4 12.3 Plt Count 232 254 MPV 10.0 10.1 Immature Gran % 0.2 Neutrophils % 81.2 Lymphocytes % 10.5 Monocytes % 6.3 Eosinophils % 1.2 Basophils % 0.6 Nucleated RBC % 0.0 Absolute Neutrophils 4.01 Absolute Lymphocytes 0.52 L Absolute Monocytes 0.31 Absolute Eosinophils 0.06 Absolute Basophils 0.03 Sodium 141 139 Potassium 3.6 3.9 Chloride 106 104 Carbon Dioxide 27.3 24.5 Anion Gap 7.7 10.5 BUN 12 15 Creatinine 0.8 0.8 Est GFR (CKD-EPI 2020) 78.24 78.24 Glucose 93 168 H Calcium 8.9 9.3 Total Bilirubin 0.43 0.46 AST 12 L 15 ALT 12 L 14 Alkaline Phosphatase 108 123 H Troponin I < 50 Total Protein 7.2 7.8 Albumin 3.5 4.0 PFSH All Active Problems (Updated 10/21/23 @ 16:43 by Chas Lucas MD) Hypertensive emergency (Acute) Excessive cerumen in both ear canals (Acute) Left knee DJD (Acute) DEPO MEDROL 05/19/23 Excessive cerumen in left ear canal (Acute) Hyperlipidemia (Acute) Depression (Chronic) Obstructive airway disease (Acute) Seasonal allergies (Acute 10/04/13) Medical History COVID-19 03/2021, immunized, given monoclonal antibodies Lipoma Diverticula of colon Cataract R eye Allergic rhinitis Asthma Abnormal mammogram (10/04/13) Surgical History S/P excision of lipoma History of colonoscopy (~03/01/19) S/P ORIF (open reduction internal fixation) fracture (06/20/18) For right distal radius fracture Fracture of radius, distal, right, closed Status post ORIF on 06/20/2018 Ligation of fallopian tube (~1981) Family History Mother Hyperlipidemia Stroke Father , at 80 Heart disease Lung disease Sister No problems noted. Brother Brain tumor Brother No problems noted. Daughter No problems noted. Son No problems noted. Son No problems noted. Maternal Grandfather No problems noted. Maternal Grandmother Parkinson disease Paternal Grandfather Stroke Paternal Grandmother No problems noted. 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 [employer] Pets and animals: No Sexually active: No Do you think of yourself as: straight/heterosexual Current gender identity: female What is your relationship status?: How often do you talk on the phone with friends or family?: three or more times per week How often do you get together with friends or relatives?: three or more times per week Do you belong to any clubs or organized social groups?: no Panel score (0-1 are the most socially isolated patients): 1 What type of physical activity do you participate in: other Duration: > 90 minutes/day Frequency: daily Special mari needs: No Seatbelt use: sometimes Helmet use: No Drive intox or ride w/intox 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
[2023-10-22] MEDS: Magnesium Citrate 300 ML BTL PO (10:31)
--- NOTE | 2023-10-22 15:05 | PDOC.CMPRO ---
Date of service: 10/22/23 Time of Service: 15:05 Care Management Progress Note Progress Note Text Progress Note Text: Cecelia was admitted last evening with a hypertensive emergency. Her SBP was over 200 and was accompanied by severe headache and nausea. She was treated with an antiemetic in the ED with some improvement but the symptomatic hypertension returned. She was started on a Nicardipine drip with good results. Her systolic blood pressure dropped into the 130-150 range and remained WNL through the night. She was discharged home this morning to follow up with her PCP. SDOH(Care Management) Screening Will the Patient Participate in the Screening?: Yes Do you worry about having a steady place to live?: no Problems where you live: no known problems In the past 12 months, have you had to go without electric, gas, oil or water in your home?: no Have you or anyone in your house had to go without enough food to eat?: no Has lack of transportation kept you from medical appointments or from doing things needed for daily living?: no Has anyone in your support network made you feel unsafe for any reason?: no
== END 2023-10-22 11:03 | disposition home or self-care (01) | DRG 305 ==
LOC: ER 16:43 → ICU 17:53
PROVIDERS: Admitting Provider Family Medicine; Emergency Provider Student in an Organized Health Care Education/Training Program; PCP Nurse Practitioner Family; Visit Provider Family Medicine
DX: I16.1 Hypertensive emergency (principal); I10 Essential (primary) hypertension; F32.A Depression, unspecified; R51.9 Headache, unspecified; R11.2 Nausea with vomiting, unspecified; E78.5 Hyperlipidemia, unspecified; M17.12 Unilateral primary osteoarthritis, left knee; J44.9 Chronic obstructive pulmonary disease, unspecified; Z79.899 Other long term (current) drug therapy
CPT/HCPCS: 00123; 36415; 70496; 70498; 80053; 85027; 93005; 96365; 96375; 99291; J1650; 70551; 84484; 85025; 93010; 99223; 99238; J2404; J2405; J2470; J3490

== ENCOUNTER 2023-10-23 12:06 | Emergency (ER) | payer MEDICARE, SELFPAY ==
--- NOTE | 2023-10-23 12:00 | RT.EKG_ITS ---
APPROVED REPORT Exam: Resting ECG Reason for Exam: Dizzy Patient Location: E HR:82 bpm ECG Measurements Heart Rate 82 AXIS RI 152 P 45 QRSd 91 QRS 25 QT 386 T 60 QTc 451 Conclusion Sinus rhythm...normal P axis, V-rate 60- 99 sinus rhtyhm, normal axis, nomrla intervals, non ischemic
[2023-10-23 12:08] VITALS: BP 174/86; PULSE 79; RESP 16; TEMP 36.5; O2SAT 99
[2023-10-23 12:11] VITALS: RESP 16
[2023-10-23] MEDS: Acetaminophen 325 MG TAB 650 MG PO (12:56)
[2023-10-23 13:10] LABS: Abs Immature Grans 0.02 10^3/uL (0.0-0.06); Absolute Basophil Count 0.04 10^3/uL (0.0-0.2); Absolute Eosinophil Count 0.15 10^3/uL (0.0-0.7); Absolute Lymphocyte Count 0.77 10^3/uL (1.2-3.4); Absolute Monocyte Count 0.32 10^3/uL (0.1-0.8); Absolute Neutrophil Count 2.56 10^3/uL (1.2-6.7); Eosinophils % 3.9 %; HCT 38.6 % (36.0-46.0); HGB 12.4 g/dL (11.2-15.7); Immature Grans % 0.5 %; Lymphocytes % 19.9 %; MCH 31.8 pg (27.0-33.0); MCHC 32.1 % (32.0-36.0); MCV 99 fL (80-95); MPV 9.7 fL (8.0-11.0); Monocytes % 8.3 %; Neutrophils % 66.4 %; Platelet Count 244 10^3/uL (130-400); RDW 12.5 % (11.7-14.6); RDW-SD 45.3 fL; WBC 3.86 10^3/uL (4.4-10.8)
[2023-10-23 13:14] LABS: Bilirubin Negative (Negative); Blood Negative (Negative); Clarity Clear (Clear); Glucose Negative (Negative); Ketones Negative (Negative); Leukocyte Esterase Negative (Negative); Nitrite Negative (Negative); Urobilinogen 0.2 mg/dL (Up to 0.2)
[2023-10-23 13:25] LABS: ALT 13 U/L (14-59); AST 11 U/L (15-37); Albumin 3.5 g/dL (3.4-5.0); Alkaline Phosphatase 108 U/L (46-116); Anion Gap 7.4 mmol/L (3-11); BUN 12 mg/dL (7-18); Bilirubin, Total 0.32 mg/dL (0.2-1.0); CO2 27.6 mmol/L (21.0-32.0); Calcium 8.9 mg/dL (8.5-10.1); Chloride 106 mmol/L (98-107); Estimated GFR 59.86 (mL/min/1.73m2); Glucose 120 mg/dL (74-106); Magnesium 1.8 mg/dL (1.8-2.4); Potassium 3.5 mmol/L (3.5-5.1); Sodium 141 mmol/L (136-145); Total Protein 7.2 g/dL (6.4-8.2)
--- NOTE | 2023-10-23 13:54 | W.ED.GENAD ---
Discharge Plan Disposition Patient Disposition: Home Discharge Details Clinical Impression: Anxiety about health, Dizziness, Elevated blood pressure reading Primary Care Provider: Yelena Saldana ED Provider: Tommy Powell Home Meds and New Rx's Prescriptions: Continued ibuprofen 600 mg tablet 600 mg PO Q6H PRN (Reason: pain) Qty: 60 0RF bupropion HCl [Wellbutrin XL] 300 mg tablet extended release 24 hr 300 mg PO QAM Qty: 90 3RF Discharge Instructions Instructions: Anxiety, Adult ED Additional Instructions: At this time your blood pressure has normalized without any interventions and your symptoms have resolved which is reassuring. Given the extensive workup that you had a couple days ago with nonemergent findings and no need for outpatient blood pressure medications I feel that there is a likelihood your symptoms today were more due to anxiety after noting a elevated blood pressure reading then an emergent condition. Please continue to monitor symptoms and return for any new or significant worsening of your condition otherwise follow-up with your primary care provider for reassessment preferably early this next week. Referrals: Yelena Saldana, [employer] [Primary Care Provider] - 3 days HPI General Mode of arrival: ambulatory. Date/Time Provider Initiated Documentation: 10/23/23 12:09. Limitations to Documentation: no limitations. Information obtained by: patient, family and RN notes reviewed. History of Present Illness 73 year old F presents to the emergency department with the chief complaint of Dizziness, elevated blood pressure reading, described as mild and similar to prior episodes, Patient started experiencing this hour(s) (1) and it has been constant. No relieving factors improve symptom(s), Other factors that worsen symptoms (Having elevated blood pressure reading) . Patient notes headaches. Patient did receive the following treatments prior to arrival, none Related Data Home Medications ?Medication ?Instructions ?Recorded ?Confirmed ibuprofen 600 mg tablet 600 mg PO Q6H PRN pain #60 tabs 02/14/20 10/23/23 bupropion HCl 300 mg 24 hr tablet, 300 mg PO QAM #90 tabs 09/19/23 10/23/23 extended release (Wellbutrin XL) Previous Rx's ?Medication ?Instructions ?Recorded ibuprofen 600 mg tablet 600 mg PO Q6H PRN pain #60 tabs 02/14/20 bupropion HCl 300 mg 24 hr tablet, 300 mg PO QAM #90 tabs 09/19/23 extended release (Wellbutrin XL) Allergies Allergy/AdvReac Type Severity Reaction Status Date / Time PETS/HORSES/HAY/DUST/DANDER/POLLEN Allergy Unknown Itching Uncoded 10/23/23 12:14 General Stated Complaint: Dizzy/Sync PRIYANKA: 3 Review of Systems Constitutional Constitutional: Reports headache(s), Denies malaise and Denies weakness Eyes Eyes: Denies change in vision ENT Ears, Nose, Mouth, and Throat: Reports dizziness and Reports headache(s) Cardiovascular Cardiovascular: Denies chest pain and Denies dyspnea Respiratory Respiratory: Denies dyspnea Gastrointestinal Gastrointestinal: Denies abdominal pain, Denies nausea and Denies vomiting Neurologic Neurologic: Reports as per HPI, Reports dizziness, Reports headache(s) and Denies weakness Psychiatric Psychiatric: Reports anxiety Exam Const General: cooperative, healthy appearing, no acute distress and well groomed Orientation: alert, awake and oriented x3 HENMT Head: normal to inspection Ears: hearing grossly normal bilaterally and TM's normal bilaterally Mouth: oral mucosae normal and moist mucous membranes Throat: posterior oropharynx normal Eyes Visual Pinto: normal visual pinto by confrontation Alignment and Position: alignment normal Periorbital: periorbital findings normal Eyelids: eyelids normal Sclera: sclerae normal Pupils: PERRL EOM: EOM intact bilaterally Neck Neck: normal visual inspection, full ROM and no meningeal signs Resp Effort & Inspection: normal respiratory effort and able to speak in complete sentences Auscultation: clear to auscultation bilaterally Cardio Rate: regular rate Rhythm: regular rhythm Heart Sounds: S1 normal and S2 normal Neuro General: patient alert, patient awake, patient oriented x3, gait normal, tone normal, moves all extremities, CN's II-XI intact bilaterally and not confused Cognition: normal cognition Speech: speech normal Motor: muscle tone normal throughout, strength 5/5 throughout, no pronator drift, no movement abnormalities noted and no fasciculations Sensory Exam: no sensory deficits noted Coordination: [id number] test normal, Does not sway with eyes open, rapid alternating movement UE normal and rapid alternating movement LE normal Course Vital Signs Vital signs: Vital Signs Temperature 36.5 C 10/23/23 12:08 Pulse 79 10/23/23 12:08 Respiratory Rate 16 10/23/23 12:08 Blood Pressure 174/86 H 10/23/23 12:08 Pulse Oximetry 99 10/23/23 12:08 Temperature 36.5 C 10/23/23 12:08 Temperature Source Skin 10/23/23 12:08 Pulse 79 10/23/23 12:08 Respiratory Rate 16 10/23/23 12:11 Respiratory Effort Normal, Non-Labored 10/23/23 12:11 Respiratory Depth Normal 10/23/23 12:11 Respiratory Pattern Normal 10/23/23 12:11 Blood Pressure 174/86 H 10/23/23 12:08 Blood Pressure Position Supine 10/23/23 12:08 Pulse Oximetry 99 10/23/23 12:08 Oxygen Delivery Method Room Air 10/23/23 12:08 Oxygen Flow Rate 0 10/23/23 12:08 Lab/Test Results Lab/Test Results: Laboratory Tests Range/Units 10/23/23 13:05 WBC (4.4-10.8) 10^3/uL 3.86 L RBC (3.93-5.22) 10^6/uL 3.90 L Hgb (11.2-15.7) g/dL 12.4 Hct (36.0-46.0) % 38.6 MCV (80-95) fL 99 H MCH (27.0-33.0) pg 31.8 MCHC (32.0-36.0) % 32.1 RDW (11.7-14.6) % 12.5 Plt Count (130-400) 10^3/uL 244 MPV (8.0-11.0) fL 9.7 Immature Gran % % 0.5 Neutrophils % % 66.4 Lymphocytes % % 19.9 Monocytes % % 8.3 Eosinophils % % 3.9 Basophils % % 1.0 Nucleated RBC % (0.0-0.3) % 0.0 Absolute Neutrophils (1.2-6.7) 10^3/uL 2.56 Absolute Lymphocytes (1.2-3.4) 10^3/uL 0.77 L Absolute Monocytes (0.1-0.8) 10^3/uL 0.32 Absolute Eosinophils (0.0-0.7) 10^3/uL 0.15 Absolute Basophils (0.0-0.2) 10^3/uL 0.04 Sodium (136-145) mmol/L 141 Potassium (3.5-5.1) mmol/L 3.5 Chloride (98-107) mmol/L 106 Carbon Dioxide (21.0-32.0) mmol/L 27.6 Anion Gap (3-11) mmol/L 7.4 BUN (7-18) mg/dL 12 Creatinine (0.55-1.02) mg/dL 1.0 Est GFR (CKD-EPI 2020) (mL/min/1.73m2) 59.86 Glucose (74-106) mg/dL 120 H Calcium (8.5-10.1) mg/dL 8.9 Magnesium (1.8-2.4) mg/dL 1.8 Total Bilirubin (0.2-1.0) mg/dL 0.32 AST (15-37) U/L 11 L ALT (14-59) U/L 13 L Alkaline Phosphatase (46-116) U/L 108 Total Protein (6.4-8.2) g/dL 7.2 Albumin (3.4-5.0) g/dL 3.5 Urine Color (Yellow) Yellow Urine Clarity (Clear) Clear Urine pH (5-8) 6.0 Ur Specific [place] (1.005-1.025) 1.010 Urine Protein (Neg-Trace) mg/dL Negative Urine Ketones (Negative) mg/dL Negative Urine Blood (Negative) Negative Urine Nitrite (Negative) Negative Urine Bilirubin (Negative) Negative Urine Urobilinogen (Up to 0.2) mg/dL 0.2 Ur Leukocyte Esterase (Negative) Negative Urine Glucose (Negative) mg/dL Negative Medical Decision Making Patient presenting to the emergency department for chief complaint of dizziness and slight headache. Patient was seen 2 days ago in the emergency department and was diagnosed with hypertensive emergency placed upon nicardipine drip and admitted to the hospital. Patient was discharged yesterday with no symptoms and no need of further medication because patient's blood pressure became normal to hypotensive. Today patient woke up feeling fine and was going about her normal business when she decided to stop at the pharmacy and check her blood pressure. When she checked her blood pressure her pressure was 170s over 80s which then soon thereafter she started feeling some dizziness and headache. Patient states this is extremely mild compared to when she was here couple days ago but was just worried about the blood pressure reading. Physical exam including full neurological exam is completely unremarkable. I have suspicion given timing of events that this is more anxiety related for today's episode but will monitor patient, give patient acetaminophen for reported slight headache, and just recheck blood work. On previous visit patient had significant workup with MRI imaging CTA imaging and admission. Please see physician interpretation for full interpretation of EKG but upon my review patient is in sinus rhythm, rate of 82, no findings to suggest acute STEMI and patient presentation does not appear consistent with ACS Reviewed patient's labs which are unremarkable otherwise and virtually unchanged from the emergency medicine standpoint from 2 days ago. Reassessed patient and patient states full resolution of all symptoms including dizziness headache or any other associated symptoms. Patient's blood pressure was noted to be even in the 140s over 80s which she states is her normal blood pressure. Discussed with patient further workup versus continued monitoring of symptoms and follow-up with primary care. After discussion patient states that she will follow-up with primary care provider and return for any new or significant worsening which I feel is reasonable. After discussion of diagnosis and plan of care patient and family member has no further needs, questions, or concerns and states clear understanding to return to the emergency department for any worsening symptoms. This documentation was generated using [employer] dictation system, please disregard any oddities of phrase or misspellings. Lab Data Lab results reviewed: Yes I reviewed the patient's lab results. Quality:SDOH Health Related Social Needs: No Data to Display PFSH All Active Problems Elevated blood pressure reading (Acute) Dizziness (Acute) Anxiety about health (Acute) Excessive cerumen in both ear canals (Acute) Left knee DJD (Acute) DEPO MEDROL 05/19/23 Excessive cerumen in left ear canal (Acute) Hyperlipidemia (Acute) Depression (Chronic) Obstructive airway disease (Acute) Seasonal allergies (Acute 10/04/13) Medical History COVID-19 03/2021, immunized, given monoclonal antibodies Lipoma Diverticula of colon Cataract R eye Allergic rhinitis Asthma Abnormal mammogram (10/04/13) Surgical History S/P excision of lipoma History of colonoscopy (~03/01/19) S/P ORIF (open reduction internal fixation) fracture (06/20/18) For right distal radius fracture Fracture of radius, distal, right, closed Status post ORIF on 06/20/2018 Ligation of fallopian tube (~1981) Family History Mother Hyperlipidemia Stroke Father , at 80 Heart disease Lung disease Sister No problems noted. Brother Brain tumor Brother No problems noted. Daughter No problems noted. Son No problems noted. Son No problems noted. Maternal Grandfather No problems noted. Maternal Grandmother Parkinson disease Paternal Grandfather Stroke Paternal Grandmother No problems noted. Social History Smoking/Tobacco Use Status: Never Second Hand Exposure: Yes Smoking risk assessment performed?: Yes Alcohol Intake: current Alcohol Intake frequency: holidays/special occasions only Alcohol type: beer Drug use: Never Substance use type: does not use Caregiver/Support person: No Housing: house Communication Needs: None Education Level: high school Do you need help understanding health information?: Never current occupation: [employer] Pets and animals: No Sexually active: No Do you think of yourself as: straight/heterosexual Current gender identity: female What is your relationship status?: How often do you talk on the phone with friends or family?: three or more times per week How often do you get together with friends or relatives?: three or more times per week Do you belong to any clubs or organized social groups?: no Panel score (0-1 are the most socially isolated patients): 1 What type of physical activity do you participate in: other Duration: > 90 minutes/day Frequency: daily Special mari needs: No Seatbelt use: sometimes Helmet use: No Drive intox or ride w/intox 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
[2023-10-23 14:05] VITALS: BP 152/80; PULSE 80; RESP 15; O2SAT 99
== END 2023-10-23 14:06 | disposition home or self-care (01) ==
PROVIDERS: Emergency Provider Nurse Practitioner Family; PCP Nurse Practitioner Family
DX: R42 Dizziness and giddiness (principal); F41.9 Anxiety disorder, unspecified; R03.0 Elevated blood-pressure reading, without diagnosis of hypertension; E78.5 Hyperlipidemia, unspecified
CPT/HCPCS: 80053; 93005; 99284; 81003; 83735; 85025; 93010; 99283

== ENCOUNTER 2023-11-15 02:09 | Outpatient (CLI) | payer MEDICARE, SELFPAY ==
[2023-11-15 08:02] LABS: ALT 12 U/L (14-59); AST 14 U/L (15-37); Albumin 3.7 g/dL (3.4-5.0); Alkaline Phosphatase 131 U/L (46-116); Anion Gap 8.7 mmol/L (3-11); BUN 12 mg/dL (7-18); Bilirubin, Total 0.52 mg/dL (0.2-1.0); CO2 28.3 mmol/L (21.0-32.0); CREATININE 0.8 mg/dL (0.55-1.02); Calculated LDL 169 mg/dL (<100); Chloride 106 mmol/L (98-107); Cholesterol 267 mg/dL (<200); Estimated GFR 78.24 (mL/min/1.73m2); Glucose 98 mg/dL (74-106); HDL Cholesterol 76 mg/dL (40-60); Potassium 3.8 mmol/L (3.5-5.1); Sodium 143 mmol/L (136-145); Total Protein 7.8 g/dL (6.4-8.2); Triglyceride 113 mg/dL (<150)
== END 2023-11-15 02:10 | disposition home or self-care (01) ==
PROVIDERS: PCP Nurse Practitioner Family; Visit Provider Nurse Practitioner Family
DX: Z00.00 Encounter for general adult medical examination without abnormal findings (principal); E78.5 Hyperlipidemia, unspecified; F32.A Depression, unspecified
CPT/HCPCS: 36415; 80053; 80061

== ENCOUNTER → 2023-12-09 08:39 | Outpatient (BNVA) | payer MEDICARE, SELFPAY | PROVIDERS: PCP Nurse Practitioner Family; Referring Provider Nurse Practitioner Family | DX: M17.12 Unilateral primary osteoarthritis, left knee (principal) | CPT/HCPCS: 20610; J1010 ==

== ENCOUNTER → 2024-05-10 10:43 | Outpatient (BNVA) | payer MEDICARE, SELFPAY | PROVIDERS: PCP Nurse Practitioner Family; Referring Provider Nurse Practitioner Family | DX: M17.12 Unilateral primary osteoarthritis, left knee (principal) | CPT/HCPCS: 20610; 99213; J1010 ==

== ENCOUNTER 2024-11-08 09:33 | Outpatient (CLI) | payer MEDICARE, SELFPAY ==
--- NOTE | 2024-11-08 07:56 | DI.MAMMO_ITS ---
Exam(s) MAMMO SCREENING EXAM: MAMMO SCREENING CLINICAL HISTORY: screening,z12.39 TECHNIQUE: Mammograms were interpreted according to the usual protocol including computer analysis with CAD system, tomosynthesis and C-view imaging. COMPARISON: 2022 FINDINGS: The breasts are composed of scattered fibroglandular densities, Breast Density category B. No suspicious masses or suspicious microcalcifications are seen. No skin thickening or abnormal axillary lymph nodes are seen. There has been no significant change from prior exams. IMPRESSION: BI-RADS Category 1, Negative mammogram Yearly screening mammography is recommended. Breast Density - Category B - There are scattered areas of fibroglandular density. Breast density Category C or D implies that the patient has dense breast tissue. Dense breast tissue can make it harder to find cancer on a mammogram. Dense breast tissue is also associated with an increased risk of breast cancer. This information about the result of the mammogram report was provided to the patient to raise their awareness. Use this report when you speak with the patient about their risks for breast cancer, which includes their family history. At that time, you may recommend additional screening tests (Ultrasound or MRI) as these tests may add significant information. A negative radiographic report should not delay biopsy if a dominant or clinically suspicious mass is present. Up to ten percent of cancers are not identified on mammography. A negative report may reinforce clinical impression. Adenosis and dense breasts may obscure an underlying neoplasm. False positive reports average 6 to 10%. Patient will receive a letter notifying them of these results.
== END 2024-11-08 09:53 ==
LOC: DI 09:33
PROVIDERS: PCP Nurse Practitioner Family; Visit Provider Nurse Practitioner Family
DX: Z12.31 Encounter for screening mammogram for malignant neoplasm of breast (principal); R92.323 Mammographic fibroglandular density, bilateral breasts
CPT/HCPCS: 77063; 77067